=== PATIENT | male | born 1940 | race Caucasian/White ===

== ENCOUNTER → 2024-04-17 09:47 | Outpatient (REF) | payer MEDICARE, SELFPAY ==
[2024-04-17 12:31] LABS: % Basophils 0.7 % (0-2); % Eosinophils 3.2 % (0-6); % Immature Granulocytes 0.4 % (0-0.5); % Lymphocytes 23.5 % (20.5-51.1); % Monocytes 8.7 % (1.7-9.3); % Neutrophils 63.5 % (42.2-75.2); Absolute Basophils 0.1 10^3/uL (0-0.2); Absolute Eosinophils 0.2 10^3/uL (0-0.7); Absolute Lymphocytes 1.7 10^3/uL (1.2-3.4); Absolute Monocytes 0.6 10^3/uL (0.1-0.6); Absolute Neutrophils 4.6 10^3/uL (1.4-6.5); Hematocrit 40.6 % (39.0-52.0); Hemoglobin 13.2 g/dL (13.0-18.0); Mean Corp Hgb Conc. 32.5 g/dL (33.0-37.0); Mean Corpuscular Hgb 30.8 pg (27.0-31.0); Mean Corpuscular Volume 94.9 fL (80.0-94.0); Mean Platelet Volume 10.3 fL (7.4-10.4); Nucleated Red Blood Cells % 0 % (-); Platelet Count 204 10^3/uL (130-400); Red Blood Cell Count 4.28 10^6/uL (4.70-6.10); Red Cell Dist. Width 14.6 % (11.5-14.5); White Blood Cell Count 7.2 10^3/uL (4.8-10.8)
[2024-04-17 12:57] LABS: Blood Urea Nitrogen 13 mg/dl (9-20); Calcium 9.2 mg/dl (8.4-10.2); Carbon Dioxide 29 mmol/L (22-30); Chloride 98 mmol/L (98-107); Glucose 93 mg/dl (70-99); Potassium 4.8 mmol/L (3.5-5.1); Sodium 136 mmol/L (135-145); eGFR > 60.00
[2024-04-17 13:26] LABS: TSH 3.69 uIU/ml (0.47-4.68)
== END ==
LOC: REG 09:47
PROVIDERS: ATTENDING PHYSICIAN Nurse Practitioner; FAMILY PHYSICIAN Family Medicine
DX: I10 Essential (primary) hypertension (principal); I35.1 Nonrheumatic aortic (valve) insufficiency; E78.5 Hyperlipidemia, unspecified; R60.0 Localized edema; I25.10 Atherosclerotic heart disease of native coronary artery without angina pectoris
CPT/HCPCS: 36415; 80048; 84443; 85025

== ENCOUNTER → 2024-04-18 06:17 | Outpatient (REF) | payer MEDICARE, SELFPAY ==
[2024-04-18 07:25] LABS: % Basophils 0.6 % (0-2); % Eosinophils 5.2 % (0-6); % Immature Granulocytes 0.3 % (0-0.5); % Lymphocytes 22.9 % (20.5-51.1); % Monocytes 9.8 % (1.7-9.3); % Neutrophils 61.2 % (42.2-75.2); Absolute Basophils 0.1 10^3/uL (0-0.2); Absolute Eosinophils 0.5 10^3/uL (0-0.7); Absolute Monocytes 0.9 10^3/uL (0.1-0.6); Absolute Neutrophils 5.3 10^3/uL (1.4-6.5); Hematocrit 41.1 % (39.0-52.0); Hemoglobin 13.5 g/dL (13.0-18.0); Mean Corp Hgb Conc. 32.8 g/dL (33.0-37.0); Mean Corpuscular Hgb 31.6 pg (27.0-31.0); Mean Corpuscular Volume 96.3 fL (80.0-94.0); Mean Platelet Volume 10.9 fL (7.4-10.4); Nucleated Red Blood Cells % 0 % (-); Platelet Count 146 10^3/uL (130-400); Red Blood Cell Count 4.27 10^6/uL (4.70-6.10); Red Cell Dist. Width 14.6 % (11.5-14.5); White Blood Cell Count 8.7 10^3/uL (4.8-10.8)
[2024-04-18 08:19] LABS: Blood Urea Nitrogen 13 mg/dl (9-20); Calcium 9.2 mg/dl (8.4-10.2); Carbon Dioxide 32 mmol/L (22-30); Chloride 96 mmol/L (98-107); Glucose 96 mg/dl (70-99); HDL Cholesterol 34 mg/dl; LDL Cholesterol, Calculated 31 mg/dl; Potassium 4.9 mmol/L (3.5-5.1); Sodium 136 mmol/L (135-145); Total Cholesterol 75 mg/dl (50-199); Triglyceride 54 mg/dl (10-149); Very Low Density Lipoprotein 10 mg/dl (0-30); eGFR > 60.00
[2024-04-18 08:30] LABS: TSH 4.57 uIU/ml (0.47-4.68)
== END ==
LOC: REG 06:17
PROVIDERS: ATTENDING PHYSICIAN Nurse Practitioner; FAMILY PHYSICIAN Family Medicine
DX: I10 Essential (primary) hypertension (principal); I35.1 Nonrheumatic aortic (valve) insufficiency; E78.5 Hyperlipidemia, unspecified; I25.10 Atherosclerotic heart disease of native coronary artery without angina pectoris; R60.0 Localized edema
CPT/HCPCS: 36415; 80048; 80061; 84443; 85025

== ENCOUNTER → 2024-05-07 11:00 | Outpatient (REF) | payer MEDICARE, SELFPAY | LOC: HWRCS 11:00 | PROVIDERS: ATTENDING PHYSICIAN Nurse Practitioner; FAMILY PHYSICIAN Family Medicine | DX: I35.1 Nonrheumatic aortic (valve) insufficiency (principal); R60.0 Localized edema | CPT/HCPCS: 93306 ==

== ENCOUNTER → 2024-06-07 07:07 | Outpatient (REF) | payer MEDICARE, SELFPAY ==
[2024-06-07 08:16] LABS: % Basophils 0.4 % (0-2); % Eosinophils 2.3 % (0-6); % Immature Granulocytes 0.4 % (0-0.5); % Lymphocytes 22.7 % (20.5-51.1); % Monocytes 8.3 % (1.7-9.3); % Neutrophils 65.9 % (42.2-75.2); Absolute Eosinophils 0.2 10^3/uL (0-0.7); Absolute Lymphocytes 1.9 10^3/uL (1.2-3.4); Absolute Monocytes 0.7 10^3/uL (0.1-0.6); Absolute Neutrophils 5.5 10^3/uL (1.4-6.5); Hematocrit 38.5 % (39.0-52.0); Hemoglobin 12.5 g/dL (13.0-18.0); Mean Corp Hgb Conc. 32.5 g/dL (33.0-37.0); Mean Corpuscular Hgb 31.6 pg (27.0-31.0); Mean Corpuscular Volume 97.5 fL (80.0-94.0); Mean Platelet Volume 10.3 fL (7.4-10.4); Nucleated Red Blood Cells % 0 % (-); Platelet Count 189 10^3/uL (130-400); Red Blood Cell Count 3.95 10^6/uL (4.70-6.10); Red Cell Dist. Width 15.8 % (11.5-14.5); White Blood Cell Count 8.3 10^3/uL (4.8-10.8)
[2024-06-07 08:30] LABS: Erythrocyte Sed Rate 50 mm/hour (0-20)
== END ==
LOC: REG 07:07
PROVIDERS: ATTENDING PHYSICIAN Physician Assistant Surgical; FAMILY PHYSICIAN Family Medicine
DX: Z96.652 Presence of left artificial knee joint (principal); M25.562 Pain in left knee; M25.561 Pain in right knee
CPT/HCPCS: 36415; 85025; 85652; 86140

== ENCOUNTER → 2024-06-12 07:33 | Outpatient (REF) | payer MEDICARE, SELFPAY | LOC: RAD 07:33 | PROVIDERS: ATTENDING PHYSICIAN Physician Assistant Surgical; FAMILY PHYSICIAN Family Medicine | DX: Z96.652 Presence of left artificial knee joint (principal); M25.562 Pain in left knee; M25.561 Pain in right knee | CPT/HCPCS: 78315; A9503 ==

== ENCOUNTER → 2024-06-26 07:03 | Outpatient (REF) | payer MEDICARE, SELFPAY | LOC: DHCBC/DCA 07:03 | PROVIDERS: ATTENDING PHYSICIAN Internal Medicine Cardiovascular Disease; FAMILY PHYSICIAN Family Medicine | DX: I25.10 Atherosclerotic heart disease of native coronary artery without angina pectoris (principal); R06.02 Shortness of breath | CPT/HCPCS: 78452; 93017; A9500; J2785 ==

== ENCOUNTER → 2024-06-27 07:30 | Outpatient (REF) | payer MEDICARE, SELFPAY | LOC: RAD 07:30 | PROVIDERS: ATTENDING PHYSICIAN Internal Medicine Cardiovascular Disease; FAMILY PHYSICIAN Family Medicine | DX: R60.0 Localized edema (principal) | CPT/HCPCS: 93971 ==

== ENCOUNTER → 2024-07-07 07:01 | Outpatient (REF) | payer MEDICARE, SELFPAY ==
[2024-07-07 07:51] LABS: Urine Albumin Trace (Neg - Trace); Urine Bilirubin Negative (Negative); Urine Character Clear (Clear); Urine Color Yellow; Urine Glucose Negative (Negative); Urine Ketone Negative (Negative); Urine Leukocyte Negative (Negative); Urine Nitrite Negative (Negative); Urine Occult Blood Negative (Negative); Urine Urobilinogen 1+ (Neg - 1+)
[2024-07-07 07:59] LABS: % Basophils 0.6 % (0-2); % Eosinophils 3.6 % (0-6); % Immature Granulocytes 0.5 % (0-0.5); % Lymphocytes 26.3 % (20.5-51.1); % Monocytes 11.4 % (1.7-9.3); % Neutrophils 57.6 % (42.2-75.2); Absolute Basophils 0.1 10^3/uL (0-0.2); Absolute Eosinophils 0.3 10^3/uL (0-0.7); Absolute Lymphocytes 2.1 10^3/uL (1.2-3.4); Absolute Monocytes 0.9 10^3/uL (0.1-0.6); Absolute Neutrophils 4.7 10^3/uL (1.4-6.5); Hematocrit 38.8 % (39.0-52.0); Hemoglobin 12.5 g/dL (13.0-18.0); Mean Corp Hgb Conc. 32.2 g/dL (33.0-37.0); Mean Corpuscular Hgb 32.2 pg (27.0-31.0); Mean Platelet Volume 10.2 fL (7.4-10.4); Nucleated Red Blood Cells % 0 % (-); Platelet Count 233 10^3/uL (130-400); Red Blood Cell Count 3.88 10^6/uL (4.70-6.10); Red Cell Dist. Width 16.8 % (11.5-14.5); White Blood Cell Count 8.1 10^3/uL (4.8-10.8)
[2024-07-07 08:05] LABS: Erythrocyte Sed Rate 64 mm/hour (0-20)
[2024-07-07 08:11] LABS: ALT (SGPT) 13 U/L (0-50); AST (SGOT) 23 U/L (17-59); Albumin 3.7 g/dl (3.5-5.0); Alkaline Phosphatase 101 U/L (38-126); Blood Urea Nitrogen 24 mg/dl (9-20); Calcium 9.1 mg/dl (8.4-10.2); Carbon Dioxide 33 mmol/L (22-30); Chloride 97 mmol/L (98-107); Glucose 117 mg/dl (70-99); Lipase 137 U/L (23-300); Potassium 4.9 mmol/L (3.5-5.1); Sodium 142 mmol/L (135-145); Total Bilirubin 0.6 mg/dl (0.2-1.3); Total Protein 8.4 g/dl (6.3-8.2); eGFR > 60.00
[2024-07-07 09:02] LABS: PSA, Total - Screen 0.11 ng/ml (0.0-4.0)
[2024-07-08 15:19] LABS: NT-proBNP 1300 pg/ml
== END ==
LOC: REG 07:01
PROVIDERS: ATTENDING PHYSICIAN Internal Medicine Geriatric Medicine; FAMILY PHYSICIAN Nurse Practitioner Family
DX: Z76.89 Persons encountering health services in other specified circumstances (principal); R60.0 Localized edema; R59.9 Enlarged lymph nodes, unspecified; R06.02 Shortness of breath; E78.2 Mixed hyperlipidemia; I10 Essential (primary) hypertension; E21.0 Primary hyperparathyroidism; I25.10 Atherosclerotic heart disease of native coronary artery without angina pectoris; E55.9 Vitamin D deficiency, unspecified; E05.00 Thyrotoxicosis with diffuse goiter without thyrotoxic crisis or storm; E04.1 Nontoxic single thyroid nodule; R10.33 Periumbilical pain; Z13.31 Encounter for screening for depression; Z12.5 Encounter for screening for malignant neoplasm of prostate
CPT/HCPCS: 36415; 71046; 80053; 81003; 83690; 83880; 85025; 85652; G0103

== ENCOUNTER → 2024-07-07 07:41 | Outpatient (REF) | payer MEDICARE, SELFPAY | LOC: WOUND 07:41 | PROVIDERS: ATTENDING PHYSICIAN Surgery; FAMILY PHYSICIAN Family Medicine | DX: I87.312 Chronic venous hypertension (idiopathic) with ulcer of left lower extremity (principal); L97.222 Non-pressure chronic ulcer of left calf with fat layer exposed; L97.822 Non-pressure chronic ulcer of other part of left lower leg with fat layer exposed; I87.2 Venous insufficiency (chronic) (peripheral); I73.9 Peripheral vascular disease, unspecified; I25.10 Atherosclerotic heart disease of native coronary artery without angina pectoris; E66.09 Other obesity due to excess calories; I21.19 ST elevation (STEMI) myocardial infarction involving other coronary artery of inferior wall; I10 Essential (primary) hypertension | CPT/HCPCS: 97597; 99204 ==

== ENCOUNTER → 2024-07-09 14:07 | Outpatient (REF) | payer MEDICARE, SELFPAY | LOC: HWRAD 14:07 | PROVIDERS: ATTENDING PHYSICIAN Nurse Practitioner Family | DX: J90 Pleural effusion, not elsewhere classified (principal); M79.89 Other specified soft tissue disorders; R59.9 Enlarged lymph nodes, unspecified | CPT/HCPCS: 71270; 74178; Q9967 ==

== ENCOUNTER → 2024-07-15 08:39 | Outpatient (REF) | payer MEDICARE, SELFPAY | LOC: WOUND 08:39 | PROVIDERS: ATTENDING PHYSICIAN Surgery; FAMILY PHYSICIAN Nurse Practitioner Family | DX: I87.312 Chronic venous hypertension (idiopathic) with ulcer of left lower extremity (principal); L97.222 Non-pressure chronic ulcer of left calf with fat layer exposed; L97.822 Non-pressure chronic ulcer of other part of left lower leg with fat layer exposed; I87.2 Venous insufficiency (chronic) (peripheral); I73.9 Peripheral vascular disease, unspecified; I25.10 Atherosclerotic heart disease of native coronary artery without angina pectoris; E66.09 Other obesity due to excess calories; I21.19 ST elevation (STEMI) myocardial infarction involving other coronary artery of inferior wall; I10 Essential (primary) hypertension | CPT/HCPCS: 99213 ==

== ENCOUNTER → 2024-07-22 08:41 | Outpatient (REF) | payer MEDICARE, SELFPAY | LOC: WOUND 08:41 | PROVIDERS: ATTENDING PHYSICIAN Surgery; FAMILY PHYSICIAN Nurse Practitioner Family | DX: I87.312 Chronic venous hypertension (idiopathic) with ulcer of left lower extremity (principal); L97.222 Non-pressure chronic ulcer of left calf with fat layer exposed; L97.822 Non-pressure chronic ulcer of other part of left lower leg with fat layer exposed; I87.2 Venous insufficiency (chronic) (peripheral); I73.9 Peripheral vascular disease, unspecified; I25.10 Atherosclerotic heart disease of native coronary artery without angina pectoris; I21.19 ST elevation (STEMI) myocardial infarction involving other coronary artery of inferior wall; I10 Essential (primary) hypertension | CPT/HCPCS: 29581; 99213 ==

== ENCOUNTER → 2024-07-25 09:43 | Outpatient (REF) | payer MEDICARE, SELFPAY | LOC: WOUND 09:43 | PROVIDERS: ATTENDING PHYSICIAN Surgery; FAMILY PHYSICIAN Nurse Practitioner Family | DX: I87.312 Chronic venous hypertension (idiopathic) with ulcer of left lower extremity (principal); L97.222 Non-pressure chronic ulcer of left calf with fat layer exposed; L97.822 Non-pressure chronic ulcer of other part of left lower leg with fat layer exposed; I87.2 Venous insufficiency (chronic) (peripheral); I73.9 Peripheral vascular disease, unspecified; I25.10 Atherosclerotic heart disease of native coronary artery without angina pectoris; E66.09 Other obesity due to excess calories; I21.19 ST elevation (STEMI) myocardial infarction involving other coronary artery of inferior wall; I10 Essential (primary) hypertension | CPT/HCPCS: 29580 ==

== ENCOUNTER → 2024-07-28 14:18 | Outpatient (REF) | payer MEDICARE, SELFPAY | LOC: WOUND 14:18 | PROVIDERS: ATTENDING PHYSICIAN Surgery; FAMILY PHYSICIAN Nurse Practitioner Family | DX: I87.312 Chronic venous hypertension (idiopathic) with ulcer of left lower extremity (principal); L97.222 Non-pressure chronic ulcer of left calf with fat layer exposed; L97.822 Non-pressure chronic ulcer of other part of left lower leg with fat layer exposed; I87.2 Venous insufficiency (chronic) (peripheral); I73.9 Peripheral vascular disease, unspecified; I25.10 Atherosclerotic heart disease of native coronary artery without angina pectoris; E66.09 Other obesity due to excess calories; I21.19 ST elevation (STEMI) myocardial infarction involving other coronary artery of inferior wall; I10 Essential (primary) hypertension | CPT/HCPCS: 29581; 99213 ==

== ENCOUNTER → 2024-08-01 09:31 | Outpatient (REF) | payer MEDICARE, SELFPAY | LOC: WOUND 09:31 | PROVIDERS: ATTENDING PHYSICIAN Surgery; FAMILY PHYSICIAN Nurse Practitioner Family | DX: I87.312 Chronic venous hypertension (idiopathic) with ulcer of left lower extremity (principal); L97.222 Non-pressure chronic ulcer of left calf with fat layer exposed; L97.822 Non-pressure chronic ulcer of other part of left lower leg with fat layer exposed; I87.2 Venous insufficiency (chronic) (peripheral); I73.9 Peripheral vascular disease, unspecified; I25.10 Atherosclerotic heart disease of native coronary artery without angina pectoris; E66.09 Other obesity due to excess calories; I21.19 ST elevation (STEMI) myocardial infarction involving other coronary artery of inferior wall; I10 Essential (primary) hypertension | CPT/HCPCS: 29580 ==

== ENCOUNTER → 2024-08-04 08:29 | Outpatient (REF) | payer MEDICARE, SELFPAY | LOC: WOUND 08:29 | PROVIDERS: ATTENDING PHYSICIAN Surgery; FAMILY PHYSICIAN Nurse Practitioner Family | DX: I87.312 Chronic venous hypertension (idiopathic) with ulcer of left lower extremity (principal); L97.222 Non-pressure chronic ulcer of left calf with fat layer exposed; L97.822 Non-pressure chronic ulcer of other part of left lower leg with fat layer exposed; I87.2 Venous insufficiency (chronic) (peripheral); I73.9 Peripheral vascular disease, unspecified; I25.10 Atherosclerotic heart disease of native coronary artery without angina pectoris; E66.09 Other obesity due to excess calories; I21.19 ST elevation (STEMI) myocardial infarction involving other coronary artery of inferior wall; I10 Essential (primary) hypertension | CPT/HCPCS: 11042 ==

== ENCOUNTER → 2024-08-06 06:22 | Outpatient (REF) | payer MEDICARE, SELFPAY ==
[2024-08-06 06:51] LABS: % Basophils 0.7 % (0-2); % Eosinophils 3.6 % (0-6); % Immature Granulocytes 0.8 % (0-0.5); % Lymphocytes 30.3 % (20.5-51.1); % Monocytes 10.3 % (1.7-9.3); % Neutrophils 54.3 % (42.2-75.2); Absolute Eosinophils 0.2 10^3/uL (0-0.7); Absolute Immature Granulocytes 0.1 10^3/uL (0-0.05); Absolute Lymphocytes 1.9 10^3/uL (1.2-3.4); Absolute Monocytes 0.6 10^3/uL (0.1-0.6); Absolute Neutrophils 3.3 10^3/uL (1.4-6.5); Hematocrit 34.9 % (39.0-52.0); Hemoglobin 11.4 g/dL (13.0-18.0); Mean Corp Hgb Conc. 32.7 g/dL (33.0-37.0); Mean Platelet Volume 10.7 fL (7.4-10.4); Nucleated Red Blood Cells % 0 % (-); Platelet Count 184 10^3/uL (130-400); Red Blood Cell Count 3.56 10^6/uL (4.70-6.10); Red Cell Dist. Width 15.9 % (11.5-14.5); White Blood Cell Count 6.1 10^3/uL (4.8-10.8)
[2024-08-06 07:19] LABS: ALT (SGPT) 12 U/L (0-50); AST (SGOT) 25 U/L (17-59); Albumin 3.5 g/dl (3.5-5.0); Alkaline Phosphatase 97 U/L (38-126); Blood Urea Nitrogen 29 mg/dl (9-20); Calcium 9.2 mg/dl (8.4-10.2); Carbon Dioxide 34 mmol/L (22-30); Chloride 97 mmol/L (98-107); Glucose 99 mg/dl (70-99); LDH 156 U/L (120-246); Sodium 141 mmol/L (135-145); Total Bilirubin 0.7 mg/dl (0.2-1.3); Total Protein 8.6 g/dl (6.3-8.2); Uric Acid 7.6 mg/dl (3.5-8.5); eGFR > 60.00
[2024-08-09 10:16] LABS: Albumin 2.93 g/dL (3.75-5.01); Alpha 1 Globulin 0.26 g/dL (0.19-0.46); Alpha 2 Globulin 0.49 g/dL (0.48-1.05); Free Kappa Light Chains,Quant 70.61 mg/L (3.30-19.40); Free Lambda Light Chains,Quant 12.98 mg/L (5.71-26.30); IgA 4033 mg/dL (68-408); IgG 702 mg/dL (768-1632); IgM 100 mg/dL (35-263); Immunofixation Electrophoresis IFE Done; Kappa/Lambda Fr Light Ratio 5.44 (0.26-1.65); Total Protein-Electrophoresis 8.7 g/dL (6.3-8.2)
== END ==
LOC: REG 06:22
PROVIDERS: ATTENDING PHYSICIAN Internal Medicine Hematology & Oncology; FAMILY PHYSICIAN Nurse Practitioner Family
DX: C85.90 Non-Hodgkin lymphoma, unspecified, unspecified site (principal); I10 Essential (primary) hypertension
CPT/HCPCS: 36415; 80053; 82784; 83521; 83615; 84155; 84165; 84550; 85025; 86334

== ENCOUNTER → 2024-08-08 07:55 | Outpatient (REF) | payer MEDICARE, SELFPAY ==
[2024-08-08 08:45] VITALS: BP 117/65; BP_SYST 80
[2024-08-08 09:26] VITALS: BP 114/64
== END ==
LOC: WDC 07:55
PROVIDERS: ATTENDING PHYSICIAN Surgery; FAMILY PHYSICIAN Family Medicine
DX: J90 Pleural effusion, not elsewhere classified (principal); R59.1 Generalized enlarged lymph nodes; N64.59 Other signs and symptoms in breast
CPT/HCPCS: 88305; 32555; 71045; 76642; 88112

== ENCOUNTER → 2024-08-11 14:13 | Outpatient (REF) | payer MEDICARE, SELFPAY | LOC: WOUND 14:13 | PROVIDERS: ATTENDING PHYSICIAN Surgery; FAMILY PHYSICIAN Nurse Practitioner Family | DX: I87.312 Chronic venous hypertension (idiopathic) with ulcer of left lower extremity (principal); L97.222 Non-pressure chronic ulcer of left calf with fat layer exposed; L97.822 Non-pressure chronic ulcer of other part of left lower leg with fat layer exposed; I87.2 Venous insufficiency (chronic) (peripheral); I73.9 Peripheral vascular disease, unspecified; I25.10 Atherosclerotic heart disease of native coronary artery without angina pectoris; E66.09 Other obesity due to excess calories; I21.19 ST elevation (STEMI) myocardial infarction involving other coronary artery of inferior wall; I10 Essential (primary) hypertension | CPT/HCPCS: 11042 ==

== ENCOUNTER → 2024-08-18 07:29 | Outpatient (REF) | payer MEDICARE, SELFPAY | LOC: WDC 07:29 | PROVIDERS: ATTENDING PHYSICIAN Surgery; FAMILY PHYSICIAN Family Medicine | DX: R59.1 Generalized enlarged lymph nodes (principal) | CPT/HCPCS: 19285; A4648 ==

== ENCOUNTER → 2024-08-18 14:02 | Outpatient (REF) | payer MEDICARE, SELFPAY | LOC: WOUND 14:02 | PROVIDERS: ATTENDING PHYSICIAN Surgery; FAMILY PHYSICIAN Nurse Practitioner Family | DX: I87.312 Chronic venous hypertension (idiopathic) with ulcer of left lower extremity (principal); L97.222 Non-pressure chronic ulcer of left calf with fat layer exposed; L97.822 Non-pressure chronic ulcer of other part of left lower leg with fat layer exposed; I87.2 Venous insufficiency (chronic) (peripheral); I73.9 Peripheral vascular disease, unspecified; I25.10 Atherosclerotic heart disease of native coronary artery without angina pectoris; E66.09 Other obesity due to excess calories; I21.19 ST elevation (STEMI) myocardial infarction involving other coronary artery of inferior wall; I10 Essential (primary) hypertension | CPT/HCPCS: 29581; 99213 ==

== ENCOUNTER 2024-08-19 06:25 | Day surgery (SDC) | payer MEDICARE, SELFPAY ==
[2024-08-15 11:02] VITALS: BMI 33.4
[2024-08-19 08:45] VITALS: BP 125/71
[2024-08-19 08:55] VITALS: BMI 33.4
[2024-08-19] MEDS: TYLENOL 1000 MG PO (09:13)
--- NOTE | 2024-08-19 09:52 | W.SUR.PREOP ---
Pre-Operative Surgical Note
-
I have examined this patient prior to the performance of the scheduled procedure.
The patient's condition is unchanged from the time of the current History and
Physical and the patient is able to undergo the scheduled procedure.
[2024-08-19 16:34] VITALS: BP 112/67
[2024-08-19 16:47] VITALS: BP 110/77
--- NOTE | 2024-08-19 16:49 | W.IMMPOSTOP ---
Surgical Immed Post Op Note
-
Primary Surgeon: Taz Muse MD
Assisting Surgeon: None
Pre-op Diagnosis: Lymphadenopathy
Post-op Diagnosis: Same
Procedure Performed: Open left axillary lymph node biopsy
Anesthesia Type: MAC
Specimen / Cultures: Left axillary lymph node (sent fresh, r/o lymphoma)
Estimated Blood Loss: 3 cc
Complications: None
Operative Findings: Palpable left axillary lymph node confirmed with ultrasound and Evelina dump operator probe. Lymph node taken out in its entirety without violation of the capsule. Surrounding tissue meticulously dissected and all structures emanating to
and from the lymph node were ligated with 3-0 Vicryl's followed by titanium clips. Pathology confirmed receiving specimen and that there was enough tissue for cytology and histopathologic examination.
--- NOTE | 2024-08-19 16:53 | OR.RPT ---
Addendum entered and electronically signed by Taz Muse MD 08/21/24 15:23:
Within the details of the operation:
The lymph node was under underneath the pectoralis minor and was a level 2 lymph node.
Requesting CPT code 42694
Original Note:
Operative Report
Operative Report
Patient Name: Jay Jay Lott
: 1940
Date of Operation: 08/19/2024
Preoperative Diagnosis: Lymphadenopathy
Postoperative Diagnosis: Same
Procedure(s):
Procedure Performed: Open left axillary lymph node biopsy
Surgeon(s):
Dr. Muse
Healthcare Economics Consultant(s):
None
Anesthesia Type: MAC
Specimen / Cultures: Left axillary lymph node (sent fresh, r/o lymphoma)
Estimated Blood Loss: 3 cc
Complications: None
Indication for surgery:
This is an 84-year-old male with diffuse lymphadenopathy concerning for lymphoma. General surgery was consulted to obtain lymph node for tissue confirmation. Preoperative imaging demonstrated PET avid lymph nodes in the left axilla. These were
not readily palpated on exam but readily visualized on ultrasound imaging. After discussion of risk benefits and alternatives, the patient elected and was consented for a left axillary lymph node biopsy. The patient was marked preoperatively with
a Evelina rouge sifter transmitter.
Operative Findings: Palpable left axillary lymph node confirmed with ultrasound and Evelina rouge sifter probe. Lymph node taken out in its entirety without violation of the capsule. Surrounding tissue meticulously dissected and all structures emanating to
and from the lymph node were ligated with 3-0 Vicryl's followed by titanium clips. Pathology confirmed receiving specimen and that there was enough tissue for cytology and histopathologic examination.
Details of the operation:
The patient was brought to the operating room a placed in the supine position. The initial Evelina rouge sifter device we used was nonfunctional so this was replaced with another, while we are awaiting the axilla was examined using an ultrasound device and
the lymph node was readily identified and our planned skin line was marked. After appropriate sedation by anesthesia, the area of the left axilla was prepped and draped in the usual fashion. A linear incision over natural skin line was made over
the mass and carried down through the subcutaneous tissue. At this point I could palpate the lymph node and our new Evelina rouge sifter probe was brought onto the field and confirmed positive signal. The lymph node which appeared to be a level 1 node, just
lateral to the pectoralis minor was identified and circumferentially freed from the surrounding tissue. Care was taken to ligate each individual structure emanating to and from the lymph node with 3-0 Vicryl ties followed by a small titanium clips.
The specimen was delivered and sent fresh to pathology for evaluation. The Evelina rouge sifter transmitter appeared to have pierced through the lymph node and was removed along with the specimen. Hemostasis was obtained. The axilla was then closed in
layers using 3-0 Vicryl sutures followed by a running 4-0 Monocryl. At this point pathology confirmed that the specimen had been received and that there was enough tissue for evaluation. The skin was then dressed with Dermabond concluding the
case. All counts were correct at the end of procedure. The patient was then transferred to the PACU for recovery.
I was the attending physician and performed the procedure with assistance from the DIGITAL ART DIRECTOR above. I was present for all portions of the case.
Taz Muse MD
[2024-08-19 17:00] VITALS: BP 119/68
[2024-08-19 17:15] VITALS: BP 98/69
== END 2024-08-19 17:33 | disposition home or self-care (01) ==
LOC: SDS 06:25
PROVIDERS: ATTENDING PHYSICIAN Surgery
DX: C83.04 Small cell B-cell lymphoma, lymph nodes of axilla and upper limb (principal)
CPT/HCPCS: 38500; 88305; 88184; 88185; 88333; 88341; 88342; 88365; A4648

== ENCOUNTER → 2024-08-22 09:25 | Outpatient (REF) | payer MEDICARE, SELFPAY | LOC: RAD 09:25 | PROVIDERS: ATTENDING PHYSICIAN Nurse Practitioner Family; FAMILY PHYSICIAN Family Medicine | DX: R06.02 Shortness of breath (principal); J90 Pleural effusion, not elsewhere classified | CPT/HCPCS: 71046 ==

== ENCOUNTER → 2024-08-25 13:35 | Outpatient (REF) | payer MEDICARE, SELFPAY | LOC: WOUND 13:35 | PROVIDERS: ATTENDING PHYSICIAN Surgery; FAMILY PHYSICIAN Nurse Practitioner Family | DX: I87.312 Chronic venous hypertension (idiopathic) with ulcer of left lower extremity (principal); L97.222 Non-pressure chronic ulcer of left calf with fat layer exposed; L97.822 Non-pressure chronic ulcer of other part of left lower leg with fat layer exposed; I87.2 Venous insufficiency (chronic) (peripheral); I73.9 Peripheral vascular disease, unspecified; I25.10 Atherosclerotic heart disease of native coronary artery without angina pectoris; E66.09 Other obesity due to excess calories; I21.19 ST elevation (STEMI) myocardial infarction involving other coronary artery of inferior wall; I10 Essential (primary) hypertension | CPT/HCPCS: 11042; 11045 ==

== ENCOUNTER → 2024-09-01 14:03 | Outpatient (REF) | payer MEDICARE, SELFPAY | LOC: WOUND 14:03 | PROVIDERS: ATTENDING PHYSICIAN Surgery; FAMILY PHYSICIAN Nurse Practitioner Family | DX: I87.313 Chronic venous hypertension (idiopathic) with ulcer of bilateral lower extremity (principal); L97.222 Non-pressure chronic ulcer of left calf with fat layer exposed; L97.822 Non-pressure chronic ulcer of other part of left lower leg with fat layer exposed; I87.2 Venous insufficiency (chronic) (peripheral); I89.0 Lymphedema, not elsewhere classified; I73.9 Peripheral vascular disease, unspecified; I25.10 Atherosclerotic heart disease of native coronary artery without angina pectoris; E66.09 Other obesity due to excess calories; I21.19 ST elevation (STEMI) myocardial infarction involving other coronary artery of inferior wall; I10 Essential (primary) hypertension | CPT/HCPCS: 29581; 99213 ==

== ENCOUNTER → 2024-09-04 06:23 | Outpatient (REF) | payer MEDICARE, SELFPAY ==
[2024-09-04 07:44] LABS: % Basophils 0.7 % (0-2); % Eosinophils 3.6 % (0-6); % Immature Granulocytes 0.5 % (0-0.5); % Lymphocytes 24.1 % (20.5-51.1); % Monocytes 8.7 % (1.7-9.3); % Neutrophils 62.4 % (42.2-75.2); Absolute Eosinophils 0.2 10^3/uL (0-0.7); Absolute Lymphocytes 1.5 10^3/uL (1.2-3.4); Absolute Monocytes 0.5 10^3/uL (0.1-0.6); Absolute Neutrophils 3.8 10^3/uL (1.4-6.5); Hematocrit 36.8 % (39.0-52.0); Hemoglobin 11.8 g/dL (13.0-18.0); Mean Corp Hgb Conc. 32.1 g/dL (33.0-37.0); Mean Corpuscular Hgb 33.1 pg (27.0-31.0); Mean Corpuscular Volume 103.4 fL (80.0-94.0); Mean Platelet Volume 10.4 fL (7.4-10.4); Nucleated Red Blood Cells % 0 % (-); Platelet Count 186 10^3/uL (130-400); Red Blood Cell Count 3.56 10^6/uL (4.70-6.10); Red Cell Dist. Width 14.6 % (11.5-14.5); White Blood Cell Count 6.1 10^3/uL (4.8-10.8)
[2024-09-04 08:16] LABS: ALT (SGPT) 13 U/L (0-50); AST (SGOT) 24 U/L (17-59); Albumin 3.5 g/dl (3.5-5.0); Alkaline Phosphatase 96 U/L (38-126); Blood Urea Nitrogen 32 mg/dl (9-20); Calcium 9.2 mg/dl (8.4-10.2); Carbon Dioxide 38 mmol/L (22-30); Chloride 97 mmol/L (98-107); Glucose 99 mg/dl (70-99); Potassium 4.7 mmol/L (3.5-5.1); Sodium 143 mmol/L (135-145); Total Bilirubin 0.6 mg/dl (0.2-1.3); eGFR > 60.00
[2024-09-04 19:42] LABS: Hepatitis B Surface Antigen Negative (Negative)
[2024-09-04 20:00] LABS: Hepatitis B Core Ab, Total Negative (Negative); Hepatitis B Surface Antibody Negative
[2024-09-04 20:11] LABS: Hepatitis A Antibody, Total Negative (Negative)
== END ==
LOC: REG 06:23
PROVIDERS: ATTENDING PHYSICIAN Internal Medicine Hematology & Oncology; FAMILY PHYSICIAN Family Medicine; REFERRING PHYSICIAN Nurse Practitioner Family
DX: C85.90 Non-Hodgkin lymphoma, unspecified, unspecified site (principal)
CPT/HCPCS: 36415; 80053; 84550; 85025; 86704; 86706; 86708; 87340

== ENCOUNTER → 2024-09-05 07:48 | Outpatient (REF) | payer MEDICARE, SELFPAY | LOC: WOUND 07:48 | PROVIDERS: ATTENDING PHYSICIAN Surgery; FAMILY PHYSICIAN Nurse Practitioner Family | DX: I87.313 Chronic venous hypertension (idiopathic) with ulcer of bilateral lower extremity (principal); L97.222 Non-pressure chronic ulcer of left calf with fat layer exposed; L97.822 Non-pressure chronic ulcer of other part of left lower leg with fat layer exposed; I87.2 Venous insufficiency (chronic) (peripheral); I89.0 Lymphedema, not elsewhere classified; I73.9 Peripheral vascular disease, unspecified; I25.10 Atherosclerotic heart disease of native coronary artery without angina pectoris; E66.09 Other obesity due to excess calories; I21.19 ST elevation (STEMI) myocardial infarction involving other coronary artery of inferior wall; I10 Essential (primary) hypertension | CPT/HCPCS: 29581 ==

== ENCOUNTER → 2024-09-08 14:14 | Outpatient (REF) | payer MEDICARE, SELFPAY | LOC: RAD 14:14 | PROVIDERS: ATTENDING PHYSICIAN Surgery; FAMILY PHYSICIAN Nurse Practitioner Family | DX: I87.312 Chronic venous hypertension (idiopathic) with ulcer of left lower extremity (principal); I87.2 Venous insufficiency (chronic) (peripheral) | CPT/HCPCS: 93971 ==

== ENCOUNTER → 2024-09-09 06:53 | Outpatient (REF) | payer MEDICARE, SELFPAY ==
[2024-09-09 07:54] VITALS: BP 112/54; BP_SYST 76
[2024-09-09 08:32] VITALS: BP 93/74
== END ==
LOC: RADI 06:53
PROVIDERS: ATTENDING PHYSICIAN Internal Medicine Hematology & Oncology; FAMILY PHYSICIAN Nurse Practitioner Family
DX: J90 Pleural effusion, not elsewhere classified (principal)
CPT/HCPCS: 32555; 71045

== ENCOUNTER → 2024-09-09 10:53 | Outpatient (REF) | payer MEDICARE, SELFPAY | LOC: WOUND 10:53 | PROVIDERS: ATTENDING PHYSICIAN Surgery; FAMILY PHYSICIAN Nurse Practitioner Family | DX: I87.313 Chronic venous hypertension (idiopathic) with ulcer of bilateral lower extremity (principal); L97.222 Non-pressure chronic ulcer of left calf with fat layer exposed; L97.822 Non-pressure chronic ulcer of other part of left lower leg with fat layer exposed; L97.512 Non-pressure chronic ulcer of other part of right foot with fat layer exposed; I87.2 Venous insufficiency (chronic) (peripheral); I89.0 Lymphedema, not elsewhere classified; I73.9 Peripheral vascular disease, unspecified; I25.10 Atherosclerotic heart disease of native coronary artery without angina pectoris; E66.09 Other obesity due to excess calories; I21.19 ST elevation (STEMI) myocardial infarction involving other coronary artery of inferior wall; I10 Essential (primary) hypertension | CPT/HCPCS: 29581; 99213 ==

== ENCOUNTER → 2024-09-12 08:40 | Outpatient (REF) | payer MEDICARE, SELFPAY | LOC: WOUND 08:40 | PROVIDERS: ATTENDING PHYSICIAN Surgery; FAMILY PHYSICIAN Nurse Practitioner Family | DX: I87.313 Chronic venous hypertension (idiopathic) with ulcer of bilateral lower extremity (principal); L97.222 Non-pressure chronic ulcer of left calf with fat layer exposed; L97.822 Non-pressure chronic ulcer of other part of left lower leg with fat layer exposed; L97.512 Non-pressure chronic ulcer of other part of right foot with fat layer exposed; I87.2 Venous insufficiency (chronic) (peripheral); I89.0 Lymphedema, not elsewhere classified; I73.9 Peripheral vascular disease, unspecified; I25.10 Atherosclerotic heart disease of native coronary artery without angina pectoris; E66.09 Other obesity due to excess calories; I21.19 ST elevation (STEMI) myocardial infarction involving other coronary artery of inferior wall; I10 Essential (primary) hypertension | CPT/HCPCS: 29581 ==

== ENCOUNTER → 2024-09-15 08:23 | Outpatient (REF) | payer MEDICARE, SELFPAY | LOC: WOUND 08:23 | PROVIDERS: ATTENDING PHYSICIAN Surgery; FAMILY PHYSICIAN Nurse Practitioner Family | DX: I87.313 Chronic venous hypertension (idiopathic) with ulcer of bilateral lower extremity (principal); L97.222 Non-pressure chronic ulcer of left calf with fat layer exposed; L97.822 Non-pressure chronic ulcer of other part of left lower leg with fat layer exposed; L97.512 Non-pressure chronic ulcer of other part of right foot with fat layer exposed; I87.2 Venous insufficiency (chronic) (peripheral); I89.0 Lymphedema, not elsewhere classified; I73.9 Peripheral vascular disease, unspecified; I25.10 Atherosclerotic heart disease of native coronary artery without angina pectoris; E66.09 Other obesity due to excess calories; I21.19 ST elevation (STEMI) myocardial infarction involving other coronary artery of inferior wall; I10 Essential (primary) hypertension | CPT/HCPCS: 29581; 99213 ==

== ENCOUNTER → 2024-09-22 09:43 | Outpatient (REF) | payer MEDICARE, SELFPAY ==
[2024-09-22 10:06] VITALS: BP 116/69; BP_SYST 86
[2024-09-22 10:38] VITALS: BP 95/55; BP_SYST 88
[2024-09-22 10:52] VITALS: BP 95/55
== END ==
LOC: RADI 09:43
PROVIDERS: ATTENDING PHYSICIAN Internal Medicine Hematology & Oncology
DX: J90 Pleural effusion, not elsewhere classified (principal)
CPT/HCPCS: 32555; 71045

== ENCOUNTER → 2024-09-22 12:01 | Outpatient (REF) | payer MEDICARE, SELFPAY | LOC: WOUND 12:01 | PROVIDERS: ATTENDING PHYSICIAN Surgery; FAMILY PHYSICIAN Nurse Practitioner Family | DX: I87.313 Chronic venous hypertension (idiopathic) with ulcer of bilateral lower extremity (principal); L97.222 Non-pressure chronic ulcer of left calf with fat layer exposed; L97.822 Non-pressure chronic ulcer of other part of left lower leg with fat layer exposed; L97.512 Non-pressure chronic ulcer of other part of right foot with fat layer exposed; I87.2 Venous insufficiency (chronic) (peripheral); I89.0 Lymphedema, not elsewhere classified; I73.9 Peripheral vascular disease, unspecified; I25.10 Atherosclerotic heart disease of native coronary artery without angina pectoris; E66.09 Other obesity due to excess calories; I21.19 ST elevation (STEMI) myocardial infarction involving other coronary artery of inferior wall; I10 Essential (primary) hypertension | CPT/HCPCS: 11042 ==

== ENCOUNTER → 2024-09-29 07:35 | Outpatient (REF) | payer MEDICARE, SELFPAY | LOC: WOUND 07:35 | PROVIDERS: ATTENDING PHYSICIAN Surgery; FAMILY PHYSICIAN Internal Medicine Geriatric Medicine | DX: I87.313 Chronic venous hypertension (idiopathic) with ulcer of bilateral lower extremity (principal); L97.822 Non-pressure chronic ulcer of other part of left lower leg with fat layer exposed; L97.512 Non-pressure chronic ulcer of other part of right foot with fat layer exposed; I87.2 Venous insufficiency (chronic) (peripheral); I89.0 Lymphedema, not elsewhere classified; I73.9 Peripheral vascular disease, unspecified; I25.10 Atherosclerotic heart disease of native coronary artery without angina pectoris; E66.09 Other obesity due to excess calories; I21.19 ST elevation (STEMI) myocardial infarction involving other coronary artery of inferior wall; I10 Essential (primary) hypertension | CPT/HCPCS: 11042 ==

== ENCOUNTER → 2024-10-06 12:52 | Outpatient (REF) | payer MEDICARE, SELFPAY | LOC: WOUND 12:52 | PROVIDERS: ATTENDING PHYSICIAN Surgery; FAMILY PHYSICIAN Nurse Practitioner Family | DX: I87.313 Chronic venous hypertension (idiopathic) with ulcer of bilateral lower extremity (principal); L97.222 Non-pressure chronic ulcer of left calf with fat layer exposed; L97.822 Non-pressure chronic ulcer of other part of left lower leg with fat layer exposed; L97.512 Non-pressure chronic ulcer of other part of right foot with fat layer exposed; I87.2 Venous insufficiency (chronic) (peripheral); I89.0 Lymphedema, not elsewhere classified; I73.9 Peripheral vascular disease, unspecified; I25.10 Atherosclerotic heart disease of native coronary artery without angina pectoris; E66.09 Other obesity due to excess calories; I21.19 ST elevation (STEMI) myocardial infarction involving other coronary artery of inferior wall; I10 Essential (primary) hypertension | CPT/HCPCS: 11042; 97597 ==

== ENCOUNTER → 2024-10-10 06:34 | Outpatient (REF) | payer MEDICARE, SELFPAY ==
[2024-10-10 07:29] VITALS: BP 114/65; BP_SYST 79
[2024-10-10 08:02] VITALS: BP 104/65
== END ==
LOC: RADI 06:34
PROVIDERS: ATTENDING PHYSICIAN Internal Medicine Hematology & Oncology; FAMILY PHYSICIAN Nurse Practitioner Family
DX: J90 Pleural effusion, not elsewhere classified (principal)
CPT/HCPCS: 32555; 71045

== ENCOUNTER → 2024-10-13 06:46 | Outpatient (REF) | payer MEDICARE, SELFPAY ==
[2024-10-15 14:46] LABS: Albumin 2.46 g/dL (3.75-5.01); Alpha 1 Globulin 0.31 g/dL (0.19-0.46); Alpha 2 Globulin 0.53 g/dL (0.48-1.05); Free Lambda Light Chains,Quant 14.12 mg/L (5.71-26.30); IgA 2604 mg/dL (68-408); IgG 596 mg/dL (768-1632); IgM 95 mg/dL (35-263); Immunofixation Electrophoresis IFE Done; Kappa/Lambda Fr Light Ratio 2.29 (0.26-1.65); Monoclonal Protein 2.28 g/dL (<=0.00); Total Protein-Electrophoresis 6.6 g/dL (6.3-8.2)
== END ==
LOC: REG 06:46
PROVIDERS: ATTENDING PHYSICIAN Internal Medicine Hematology & Oncology; FAMILY PHYSICIAN Nurse Practitioner Family
DX: C85.90 Non-Hodgkin lymphoma, unspecified, unspecified site (principal)
CPT/HCPCS: 36415; 82784; 83521; 84155; 84165; 86334

== ENCOUNTER → 2024-10-13 13:35 | Outpatient (REF) | payer MEDICARE, SELFPAY | LOC: WOUND 13:35 | PROVIDERS: ATTENDING PHYSICIAN Surgery; FAMILY PHYSICIAN Nurse Practitioner Family | DX: I87.313 Chronic venous hypertension (idiopathic) with ulcer of bilateral lower extremity (principal); L97.222 Non-pressure chronic ulcer of left calf with fat layer exposed; L97.822 Non-pressure chronic ulcer of other part of left lower leg with fat layer exposed; L97.512 Non-pressure chronic ulcer of other part of right foot with fat layer exposed; I87.2 Venous insufficiency (chronic) (peripheral); I89.0 Lymphedema, not elsewhere classified; I73.9 Peripheral vascular disease, unspecified; I25.10 Atherosclerotic heart disease of native coronary artery without angina pectoris; E66.09 Other obesity due to excess calories; I21.19 ST elevation (STEMI) myocardial infarction involving other coronary artery of inferior wall; I10 Essential (primary) hypertension | CPT/HCPCS: 99213 ==

== ENCOUNTER → 2024-10-17 07:23 | Outpatient (REF) | payer MEDICARE, SELFPAY ==
[2024-10-17 08:45] VITALS: BP 99/59; BP_SYST 79
== END ==
LOC: RADI 07:23
PROVIDERS: ATTENDING PHYSICIAN Internal Medicine Hematology & Oncology; FAMILY PHYSICIAN Nurse Practitioner Family; REFERRING PHYSICIAN Surgery
DX: J90 Pleural effusion, not elsewhere classified (principal); I73.9 Peripheral vascular disease, unspecified
CPT/HCPCS: 32555; 71045; 93922; 93925

== ENCOUNTER → 2024-10-21 10:58 | Outpatient (REF) | payer MEDICARE, SELFPAY ==
[2024-10-21 12:16] LABS: % Basophils 0.5 % (0-2); % Immature Granulocytes 0.2 % (0-0.5); % Lymphocytes 16.8 % (20.5-51.1); % Monocytes 8.5 % (1.7-9.3); Absolute Eosinophils 0.1 10^3/uL (0-0.7); Absolute Monocytes 0.5 10^3/uL (0.1-0.6); Absolute Neutrophils 4.4 10^3/uL (1.4-6.5); Hematocrit 32.1 % (39.0-52.0); Hemoglobin 10.4 g/dL (13.0-18.0); Mean Corp Hgb Conc. 32.4 g/dL (33.0-37.0); Mean Corpuscular Hgb 32.6 pg (27.0-31.0); Mean Corpuscular Volume 100.6 fL (80.0-94.0); Mean Platelet Volume 9.2 fL (7.4-10.4); Nucleated Red Blood Cells % 0 % (-); Platelet Count 387 10^3/uL (130-400); Red Blood Cell Count 3.19 10^6/uL (4.70-6.10); Red Cell Dist. Width 14.8 % (11.5-14.5); White Blood Cell Count 6.1 10^3/uL (4.8-10.8)
[2024-10-21 12:30] VITALS: BP 118/69; BP_SYST 84
[2024-10-21 12:59] LABS: ALT (SGPT) 25 U/L (0-50); AST (SGOT) 32 U/L (17-59); Alkaline Phosphatase 109 U/L (38-126); Blood Urea Nitrogen 18 mg/dl (9-20); Calcium 8.5 mg/dl (8.4-10.2); Carbon Dioxide 32 mmol/L (22-30); Chloride 100 mmol/L (98-107); Glucose 95 mg/dl (70-99); Potassium 4.4 mmol/L (3.5-5.1); Sodium 139 mmol/L (135-145); Total Bilirubin 0.5 mg/dl (0.2-1.3); Uric Acid 3.7 mg/dl (3.5-8.5); eGFR > 60.00
[2024-10-21] MEDS: ANCEF 10 IV (12:59)
[2024-10-21 14:10] VITALS: BP 122/79; BP_SYST 84
== END ==
LOC: RADI 10:58
PROVIDERS: ATTENDING PHYSICIAN Internal Medicine Hematology & Oncology; FAMILY PHYSICIAN Nurse Practitioner Family
DX: C85.90 Non-Hodgkin lymphoma, unspecified, unspecified site (principal)
CPT/HCPCS: 36415; 36561; 76937; 77001; 80053; 84550; 85025; 99152; 99153; C1788

== ENCOUNTER → 2024-10-24 08:17 | Outpatient (REF) | payer MEDICARE, SELFPAY ==
[2024-10-24 08:45] VITALS: BP 95/53; BP_SYST 77
[2024-10-24 09:15] VITALS: BP 84/51; BP_SYST 75
== END ==
LOC: RADI 08:17
PROVIDERS: ATTENDING PHYSICIAN Internal Medicine Hematology & Oncology; FAMILY PHYSICIAN Nurse Practitioner Family
DX: J90 Pleural effusion, not elsewhere classified (principal)
CPT/HCPCS: 32555; 71045

== ENCOUNTER → 2024-10-27 08:20 | Outpatient (REF) | payer MEDICARE, SELFPAY | LOC: WOUND 08:20 | PROVIDERS: ATTENDING PHYSICIAN Surgery; FAMILY PHYSICIAN Nurse Practitioner Family | DX: I87.313 Chronic venous hypertension (idiopathic) with ulcer of bilateral lower extremity (principal); L97.222 Non-pressure chronic ulcer of left calf with fat layer exposed; L97.822 Non-pressure chronic ulcer of other part of left lower leg with fat layer exposed; L97.512 Non-pressure chronic ulcer of other part of right foot with fat layer exposed; I87.2 Venous insufficiency (chronic) (peripheral); I89.0 Lymphedema, not elsewhere classified; I73.9 Peripheral vascular disease, unspecified; I25.10 Atherosclerotic heart disease of native coronary artery without angina pectoris; E66.09 Other obesity due to excess calories; I21.19 ST elevation (STEMI) myocardial infarction involving other coronary artery of inferior wall; I10 Essential (primary) hypertension | CPT/HCPCS: 99213 ==

== ENCOUNTER 2024-10-30 01:49 | Inpatient (IN) | payer MEDICARE, SELFPAY ==
[2024-10-29 18:06] VITALS: BP 109/61
--- NOTE | 2024-10-29 18:12 | ED.GENMED ---
ED Provider Triage
<Freddy Norton PA-C - Last Filed: 10/29/24 18:14>
-
Patient seen by provider in Triage?: Seen in Triage
Attestation: A medical screening examination has been initiated by a qualified medical provider. Based on the assessment performed at this time, it has been determined that an emergent medical condition may exist and the patient has been informed
that further medical evaluation and possible additional diagnostic testing may be needed.
HPI: Multiple concerns. Bilateral lower extremity swelling, numbness to the right lower extremity from the knee to the ankle, numbness to the left foot. Mild shortness of breath, feels as if he may be getting cold-like symptoms. Cancer history,
gets once weekly thoracentesis, last had 1.7 L removed last week. Labs and ultrasound imaging ordered.
GENERAL: Alert , in no apparent distress
EYE: No visual abnormalities.
NECK: Trachea midline
ENT: No visible abnormalities.
LUNGS: No acute respiratory distress
NEUROLOGICAL: Alert and oriented
SKIN: Skin intact. No visible changes.
MUSCULOSKELETAL: Moving extremities normally
PSYCH: Normal and appropriate interaction.
This is a medical evaluation conducted in person to initiate diagnostic evaluation and provide initial therapeutics. Please see further documentation by the treating clinician.
History of Present Illness
<Freddy Norton PA-C - Last Filed: 10/29/24 18:14>
General
Chief Complaint: Numbness
Time Seen by Provider: 10/29/24 22:02
<Jeannie Pina DO - Last Filed: 10/30/24 06:35>
General
Source: patient, family (Daughter and son at bedside) and previous hospital records
Exam Limitations: none
Nursing documentation reviewed up to this point in time: agreed with
History of Present Illness
History of Present Illness:
This is an 84-year-old gentleman who resides at home. He has complex past medical history including CAD, previous history of PTCA, hypertension, hyperlipidemia. More recently was diagnosed with non-Hodgkin's lymphoma August of this year with
reported extensive retroperitoneal as well as omental adenopathy as well as recurrent malignant pleural effusions requiring weekly right-sided thoracentesis last performed Sunday, 5 days ago.
He follows with [facility] and began combination chemo and immunotherapy 1 month ago, every 28 days with second round of treatment 6 days ago. He did receive a dose of Neupogen on Sunday, 2 days ago.
Approximately 2 to 3 weeks ago he suffered a fall at home and due to chronic anticoagulants was taken to [facility] where he underwent reported unremarkable imaging but was admitted for 4 days due to significant deconditioning as well as
found to have acute shingles with superficial ulcerated lesions right buttock extending to right posterior thigh. He was treated with a 1 week course of Valtrex. Despite Valtrex he continues with significant pain and persistent, worsening
ulcerated lesions right posterior buttocks, right posterior thigh. Evaluated by his PCP 1 week ago and started on gabapentin 100 mg 3 times daily. Thus far this has not been effective for pain. He notes ongoing moderate numbness right lower leg
is also mildly to the left foot but no associated weakness, no recurrent falls.
He does note intermittent cough that began perhaps last night, today with feeling that he is 'getting a cold' He has not had a fever but is noted to have low-grade fever here 99.9 �F.
Mild shortness of breath/dyspnea on exertion which is overall improved with weekly thoracentesis.
Bilateral lower extremity edema has been chronic.
Right posterior buttock, right posterior thigh wound and pain have been getting progressively worse, near debilitating.
Past History
<Freddy Norton PA-C - Last Filed: 10/29/24 18:14>
Past History
ED Past Medical History: CAD
ED Past Surgical History: Other (Bilateral cataract surgery)
Social History
Tobacco: Non-smoker
Alcohol: Occasional
Drug: None
Personal:
Living: with family
Employment: Not employed
Family History
Family History: Other (non contributory)
Phy Exam
<Jeannie Pina DO - Last Filed: 10/30/24 06:35>
Physical Exam
Physical Exam:
GENERAL: 84-year-old gentleman appears his stated age, awake and alert, mildly ill in appearance. Oriented x 3. Cooperative. Low-grade fever noted. Rare brief nonproductive cough is noted.
EYE: pupils equal and reactive. anicteric
NECK: Supple, nontender, no meningismus, no significant adenopathy.
ENT: posterior pharynx is clear, oral mucosa is moist. TM clear b/l, nares patent.
CARDIAC: Regular rate and rhythm. no murmur.
LUNGS: no acute respiratory distress, mildly decreased breath sounds at bases otherwise clear to auscultation.
ABDOMEN: Soft, nondistended, without focal tenderness, no r/g, no cvat. normoactive BS.
NEUROLOGICAL: Alert and oriented x3, no focal neuro deficits. Motor strength is 5/5 bilaterally. Gross sensation intact.
SKIN: Warm and dry, mildly pale and color. There is an extensive, coalescent ulcerated lesion that extends from right buttock down the posterior right thigh and ends at the posterior right knee with moist base, mild peripheral erythema and
exquisitely tender to touch.
MUSCULOSKELETAL: Moderate bilateral lower extremity edema. Peripheral pulses are full and equal b/l.
PSYCH: Normal and appropriate interaction.
Sepsis
<Jeannie Pina DO - Last Filed: 10/30/24 06:35>
Sepsis Screening
Sepsis Assessment: Sepsis
Sepsis Screening: Lactate >2mmol/L
Sepsis Screen
Sepsis Screen: Sepsis
Date: 10/30/24
Time: 06:34
Course
<Freddy Norton PA-C - Last Filed: 10/29/24 18:14>
Orders/Labs/Results
Orders:
Orders
10/29/24 18:11
US Periph Venous LOWER Ext [place] Urgent
Comment:
Reason For Exam: numbness, edema
10/29/24 18:38
Complete Blood Count/With Diff Urgent
Comprehensive Metabolic Panel Urgent
NT-proBNP Urgent
10/29/24 20:45
COVID-19 Antigen Urgent
Source: Nasal Swab
Influenza A+B Rapid Molecular Urgent
LEDY Source: Nasal Swab
Specimen Description:
10/29/24 22:37
Acetaminophen [Tylenol] 1,000 mg PO NOW STA
Gabapentin [Neurontin] 300 mg PO NOW STA
Oseltamivir Phosphate [Tamiflu] 75 mg PO NOW STA
10/29/24 22:38
CR Chest - 2 Views Urgent
Comment:
Reason For Exam: cough x 1 day, hx lymphoma-recurrent effusions+flu
10/29/24 22:49
Lactic Acid Urgent
Blood Culture Q30M
LEDY Source: Blood/Venous
Specimen Description:
Wound Culture [Wound/Abscess/Other Culture] Urgent
LEDY Source: Leg
Specimen Description: Right
Date Specimen was Collected: 10/29/24
Time Specimen was Collected: 22:40
Comment: right posterior leg ulcerated wound
10/29/24 23:15
Blood Culture Q30M
LEDY Source: Blood/Venous
Specimen Description:
10/29/24 23:38
0.9% Sodium Chloride 1000 ml [Nss] 1,000 ml IV BOLUS
Piperacillin/Tazo 4.5 Gram [Zosyn] 4.5 gram in 100 ml IV NOW
10/30/24 01:25
Admit/Transfer Patient As Directed
Co-Sign Provider:
Level of Care: Inpatient admission
Assign to:: IMU- Intermediate Care
Physician / Group: [facility]
Diagnosis: Sepsis, RLE Cellulitis / Wounds
Reason for Hospitalization: Sepsis, RLE Cellulitis / Wounds
Expected length of stay greater than two midnights?: Yes
ELOS- Estimated Length of Stay in days: 5
I certify the patient meets the requirements for IP care: Yes
PRN Pain Medication Management As Directed
May give lesser potent ordered pain med per pt: Yes
preference::
Protocol:: Medication orders for pain may be administered in a
manner that supports deferring to patient preference
when the pt is:
- Requesting an ordered lesser potent pain medication.
Least to most potent pain medications are defined
as: acetaminophen < NSAID < tramadol < opioids
(morphine, oxycodone, hydromorphone).
- Requesting a lesser dose of the same medication IF
ORDERED.
- Requesting a less intrusive route of administration
if both routes are prescribed by the provider (PO <
IV).
10/30/24 01:27
Code Status As Directed
Resuscitation Status: Full Code
10/30/24 01:39
NORepinephrine 4 MG/250 ML [Levophed] 4 mg in 250 ml IV NOW
Initial dose in mcg/min, then titrate:: 2
Titrate to keep:: MAP > 65 mmHg
Titrate by mcg/min:: 1-2 mcg/min
Frequency of titrations (minutes):: 5
Maximum dose in ICU in mcg/min:: 30
Maximum dose in IMU in mcg/min:: 8
Maximum dose in IVU in mcg/min:: 4
Begin to taper infusion when:: Remained at goal for 4hrs
Taper by mcg/min:: 1-2 mcg/min
Frequency of taper (minutes) if patient maintains goal:: 30
Taper to off?: Yes
If infusion off & no longer maintaining goal:: Contact Provider
10/30/24 01:45
0.9% Sodium Chloride 1000 ml [Nss] 1,000 ml IV BOLUS
10/30/24 02:03
0.9% Sodium Chloride 1000 ml [Nss] 1,000 ml IV 125 mls/hr
Acetaminophen [Tylenol] 650 mg PO Q4HPRN PRN
HYDROmorphone [Dilaudid] 0.5 mg IV Q4HPRN PRN
Ondansetron Injectable [Zofran] 4 mg IV Q6HPRN PRN
10/30/24 02:03
Consult Notification Routine
Specialty to Notify: Infectious Disease
Consult Notification Routine
Specialty to Notify: Surgical
INFECTIOUS DISEASE CONSULT Routine
Consulting Provider: Satnam Mckenzie
Was physician already notified: No
Reason for consult: Sepsis, RLE Cellulitis / Wounds, Flu A
SURGICAL CONSULT Routine
Consulting Provider: Andrés Shrestha
Was physician already notified: No
Reason for consult: RLE Ulceration / Wounds following Zoster infection
WOUND/OSTOMY CONSULT Routine
Reason for Consult: R buttocks / LE ulcerations
Activity As Directed
Activity Level: Ambulate
With Assistance
Bladder Scan As Directed
Follow Bladder Retention/Intermittent Cath Algorithm?: Yes
PRN if no void in __ hours: 6
Frequency: Per Retention Algorithm
If Bladder Scan Result >: 400
then:: Straight cath
EKG with chest pain [ECG as needed] As Directed
ECG as needed for:: Chest Pain
I/O [Intake/ Output] As Directed
Frequency: Per unit guidelines
Precautions As Directed
Type of Precautions: Contact
Droplet
Records Request [Obtain Records] As Directed
Dates of Information to be Released: Most Recent
Type of Information Requested: Entire Record
Obtain Records from: [facility]
Straight Cath As Directed
Frequency: Per Retention Algorithm
Additional Instructions: straight cath as needed per acute urinary retention algorithm for 24 hrs
Additional Instructions: for bladder scan greater than 400 mL
Vital Signs As Directed
Frequency: Per unit guidelines
Oxygen Therapy [O2 Therapy] [RESP] Routine
Titrate/Wean O2 to maintain O2 sat greater than (%): 94
Ot Eval And Treat Routine
PT Consult [Pt Eval And Treat] Routine
Activity Level: Ambulate
With Assistance
DX Deep Vein Thrombosis Video Routine
10/30/24 02:52
Lactate Level [Lactic Acid] Q6H
10/30/24 04:25
Complete Blood Count/No Diff IN AM
10/30/24 Breakfast
Regular
At Your Request: Full Participation
Piperacillin/Tazo 3.375 Gram [Zosyn] 3.375 gram in 50 ml IV Q6H
10/30/24 08:00
Aspirin Chewable [Low Strength Aspirin] 81 mg PO DAILY
Gabapentin [Neurontin] 300 mg PO TID
Heparin 5,000 units SC Q8
Oseltamivir Phosphate [Tamiflu] 75 mg PO BID
10/30/24 08:03
Lactate Level [Lactic Acid] Q6H
10/30/24 14:03
Lactate Level [Lactic Acid] Q6H
10/30/24 18:00
Atorvastatin [Lipitor] 80 mg PO QPM
Abnormal Lab Results
10/29/24 10/29/24
18:38 22:49
WBC 33.3 H 10^3/uL
(4.8-10.8)
RBC 3.03 L 10^6/uL
(4.70-6.10)
Hgb 9.9 L g/dL
(13.0-18.0)
Hct 29.4 L %
(39.0-52.0)
MCV 97.0 H fL
(80.0-94.0)
MCH 32.7 H pg
(27.0-31.0)
RDW 15.4 H %
(11.5-14.5)
Abs Immat Gran (auto) 0.2 H 10^3/uL
(0-0.05)
Absolute Neuts (auto) 31.1 H 10^3/uL
(1.4-6.5)
Absolute Lymphs (auto) 0.9 L 10^3/uL
(1.2-3.4)
Absolute Monos (auto) 1.0 H 10^3/uL
(0.1-0.6)
Immature Gran % 0.6 H %
(0-0.5)
Neutrophils % 93.3 H %
(42.2-75.2)
Lymphocytes % 2.6 L %
(20.5-51.1)
Sodium 133 L mmol/L
(135-145)
Creatinine 0.6 L mg/dL
(0.7-1.3)
Lactic Acid 2.8 H mmol/L
(0.7-2.0)
Calcium 7.9 L mg/dl
(8.4-10.2)
Alkaline Phosphatase 158 H U/L
(38-126)
Total Protein 5.7 L g/dl
(6.3-8.2)
Albumin 2.4 L g/dl
(3.5-5.0)
10/29/24 18:38
10/29/24 18:38
Vital Signs
Initial and Last Documented VS:
Initial Vital Signs
Temp Pulse Resp BP Pulse Ox
98.4 F 104 23 109/61 95
10/29/24 18:06 10/29/24 18:06 10/29/24 18:06 10/29/24 18:06 10/29/24 18:06
Last Documented Vital Signs
Temp Pulse Resp BP Pulse Ox
98.0 F 74 22 95/54 96
10/30/24 05:22 10/30/24 06:00 10/30/24 06:00 10/30/24 06:00 10/30/24 06:00
<Jeannie Pina, DO - Last Filed: 10/30/24 06:35>
Orders/Labs/Results
Orders:
Orders
10/29/24 18:11
US Periph Venous LOWER Ext [place] Urgent
Comment:
Reason For Exam: numbness, edema
10/29/24 18:38
Complete Blood Count/With Diff Urgent
Comprehensive Metabolic Panel Urgent
NT-proBNP Urgent
10/29/24 20:45
COVID-19 Antigen Urgent
Source: Nasal Swab
Influenza A+B Rapid Molecular Urgent
LEDY Source: Nasal Swab
Specimen Description:
10/29/24 22:37
Acetaminophen [Tylenol] 1,000 mg PO NOW STA
Gabapentin [Neurontin] 300 mg PO NOW STA
Oseltamivir Phosphate [Tamiflu] 75 mg PO NOW STA
10/29/24 22:38
CR Chest - 2 Views Urgent
Comment:
Reason For Exam: cough x 1 day, hx lymphoma-recurrent effusions+flu
10/29/24 22:49
Lactic Acid Urgent
Blood Culture Q30M
LEDY Source: Blood/Venous
Specimen Description:
Wound Culture [Wound/Abscess/Other Culture] Urgent
LEDY Source: Leg
Specimen Description: Right
Date Specimen was Collected: 10/29/24
Time Specimen was Collected: 22:40
Comment: right posterior leg ulcerated wound
10/29/24 23:15
Blood Culture Q30M
LEDY Source: Blood/Venous
Specimen Description:
10/29/24 23:38
0.9% Sodium Chloride 1000 ml [Nss] 1,000 ml IV BOLUS
Piperacillin/Tazo 4.5 Gram [Zosyn] 4.5 gram in 100 ml IV NOW
10/30/24 01:25
Admit/Transfer Patient As Directed
Co-Sign Provider:
Level of Care: Inpatient admission
Assign to:: IMU- Intermediate Care
Physician / Group: [facility]
Diagnosis: Sepsis, RLE Cellulitis / Wounds
Reason for Hospitalization: Sepsis, RLE Cellulitis / Wounds
Expected length of stay greater than two midnights?: Yes
ELOS- Estimated Length of Stay in days: 5
I certify the patient meets the requirements for IP care: Yes
PRN Pain Medication Management As Directed
May give lesser potent ordered pain med per pt: Yes
preference::
Protocol:: Medication orders for pain may be administered in a
manner that supports deferring to patient preference
when the pt is:
- Requesting an ordered lesser potent pain medication.
Least to most potent pain medications are defined
as: acetaminophen < NSAID < tramadol < opioids
(morphine, oxycodone, hydromorphone).
- Requesting a lesser dose of the same medication IF
ORDERED.
- Requesting a less intrusive route of administration
if both routes are prescribed by the provider (PO <
IV).
10/30/24 01:27
Code Status As Directed
Resuscitation Status: Full Code
10/30/24 01:39
NORepinephrine 4 MG/250 ML [Levophed] 4 mg in 250 ml IV NOW
Initial dose in mcg/min, then titrate:: 2
Titrate to keep:: MAP > 65 mmHg
Titrate by mcg/min:: 1-2 mcg/min
Frequency of titrations (minutes):: 5
Maximum dose in ICU in mcg/min:: 30
Maximum dose in IMU in mcg/min:: 8
Maximum dose in IVU in mcg/min:: 4
Begin to taper infusion when:: Remained at goal for 4hrs
Taper by mcg/min:: 1-2 mcg/min
Frequency of taper (minutes) if patient maintains goal:: 30
Taper to off?: Yes
If infusion off & no longer maintaining goal:: Contact Provider
10/30/24 01:45
0.9% Sodium Chloride 1000 ml [Nss] 1,000 ml IV BOLUS
10/30/24 02:03
0.9% Sodium Chloride 1000 ml [Nss] 1,000 ml IV 125 mls/hr
Acetaminophen [Tylenol] 650 mg PO Q4HPRN PRN
HYDROmorphone [Dilaudid] 0.5 mg IV Q4HPRN PRN
Ondansetron Injectable [Zofran] 4 mg IV Q6HPRN PRN
10/30/24 02:03
Consult Notification Routine
Specialty to Notify: Infectious Disease
Consult Notification Routine
Specialty to Notify: Surgical
INFECTIOUS DISEASE CONSULT Routine
Consulting Provider: Satnam Mckenzie
Was physician already notified: No
Reason for consult: Sepsis, RLE Cellulitis / Wounds, Flu A
SURGICAL CONSULT Routine
Consulting Provider: Andrés Shrestha
Was physician already notified: No
Reason for consult: RLE Ulceration / Wounds following Zoster infection
WOUND/OSTOMY CONSULT Routine
Reason for Consult: R buttocks / LE ulcerations
Activity As Directed
Activity Level: Ambulate
With Assistance
Bladder Scan As Directed
Follow Bladder Retention/Intermittent Cath Algorithm?: Yes
PRN if no void in __ hours: 6
Frequency: Per Retention Algorithm
If Bladder Scan Result >: 400
then:: Straight cath
EKG with chest pain [ECG as needed] As Directed
ECG as needed for:: Chest Pain
I/O [Intake/ Output] As Directed
Frequency: Per unit guidelines
Precautions As Directed
Type of Precautions: Contact
Droplet
Records Request [Obtain Records] As Directed
Dates of Information to be Released: Most Recent
Type of Information Requested: Entire Record
Obtain Records from: [facility]
Straight Cath As Directed
Frequency: Per Retention Algorithm
Additional Instructions: straight cath as needed per acute urinary retention algorithm for 24 hrs
Additional Instructions: for bladder scan greater than 400 mL
Vital Signs As Directed
Frequency: Per unit guidelines
Oxygen Therapy [O2 Therapy] [RESP] Routine
Titrate/Wean O2 to maintain O2 sat greater than (%): 94
Ot Eval And Treat Routine
PT Consult [Pt Eval And Treat] Routine
Activity Level: Ambulate
With Assistance
DX Deep Vein Thrombosis Video Routine
10/30/24 02:52
Lactate Level [Lactic Acid] Q6H
10/30/24 04:25
Complete Blood Count/No Diff IN AM
10/30/24 Breakfast
Regular
At Your Request: Full Participation
Piperacillin/Tazo 3.375 Gram [Zosyn] 3.375 gram in 50 ml IV Q6H
10/30/24 08:00
Aspirin Chewable [Low Strength Aspirin] 81 mg PO DAILY
Gabapentin [Neurontin] 300 mg PO TID
Heparin 5,000 units SC Q8
Oseltamivir Phosphate [Tamiflu] 75 mg PO BID
10/30/24 08:03
Lactate Level [Lactic Acid] Q6H
10/30/24 14:03
Lactate Level [Lactic Acid] Q6H
10/30/24 18:00
Atorvastatin [Lipitor] 80 mg PO QPM
Abnormal Lab Results
10/29/24 10/29/24
18:38 22:49
WBC 33.3 H 10^3/uL
(4.8-10.8)
RBC 3.03 L 10^6/uL
(4.70-6.10)
Hgb 9.9 L g/dL
(13.0-18.0)
Hct 29.4 L %
(39.0-52.0)
MCV 97.0 H fL
(80.0-94.0)
MCH 32.7 H pg
(27.0-31.0)
RDW 15.4 H %
(11.5-14.5)
Abs Immat Gran (auto) 0.2 H 10^3/uL
(0-0.05)
Absolute Neuts (auto) 31.1 H 10^3/uL
(1.4-6.5)
Absolute Lymphs (auto) 0.9 L 10^3/uL
(1.2-3.4)
Absolute Monos (auto) 1.0 H 10^3/uL
(0.1-0.6)
Immature Gran % 0.6 H %
(0-0.5)
Neutrophils % 93.3 H %
(42.2-75.2)
Lymphocytes % 2.6 L %
(20.5-51.1)
Sodium 133 L mmol/L
(135-145)
Creatinine 0.6 L mg/dL
(0.7-1.3)
Lactic Acid 2.8 H mmol/L
(0.7-2.0)
Calcium 7.9 L mg/dl
(8.4-10.2)
Alkaline Phosphatase 158 H U/L
(38-126)
Total Protein 5.7 L g/dl
(6.3-8.2)
Albumin 2.4 L g/dl
(3.5-5.0)
10/29/24 18:38
10/29/24 18:38
Vital Signs
Initial and Last Documented VS:
Initial Vital Signs
Temp Pulse Resp BP Pulse Ox
98.4 F 104 23 109/61 95
10/29/24 18:06 10/29/24 18:06 10/29/24 18:06 10/29/24 18:06 10/29/24 18:06
Last Documented Vital Signs
Temp Pulse Resp BP Pulse Ox
98.0 F 74 22 95/54 96
10/30/24 05:22 10/30/24 06:00 10/30/24 06:00 10/30/24 06:00 10/30/24 06:00
<Jeannie Pina DO - Last Filed: 10/30/24 06:35>
MDM/Problems Addressed
Differential Diagnosis Includes:
Concern for persistent severe herpes zoster right buttock to right posterior thigh, other consideration is secondary bacterial infection/cellulitis.
Patient is at significant risk for infectious process due to lymphoma, current chemotherapy.
He notes less than 1 day history of mild cough and is found to be influenza A positive. Low-grade fever noted.
Again, due to significant immunocompromise state, at risk for severe influenza.
Ultrasound bilateral lower extremities negative for DVT.
Bilateral lower extremity numbness may be bilateral lower extremity edema in nature, peripheral neuropathy related to herpes zoster but must also consider lumbar disc disease. It is reassuring that there is no weakness, no saddle anesthesia, no
difficulty moving bowels or bladder. Nothing to suggest acute cord syndrome.
Significantly elevated white blood cell count of 33 may be related to recent Neupogen but must also consider sepsis.
Will check lactic acid, blood cultures.
Wound culture of right posterior thigh ulcer.
Will initiate Tamiflu for acute influenza A.
Will check chest x-ray. Assess for potential pneumonitis, focal pneumonia, recurrent pleural effusion.
Will give Tylenol for fever, will give a dose of gabapentin, 300 mg for neuropathic pain.
Will consider IV antibiotic for potential cellulitis right posterior thigh/buttock.
Due to severe immunocompromise, intractable pain, acute influenza, concern for cellulitis as well as at significant risk for sepsis, patient will require acute hospitalization.
Chronic conditions affecting care: HTN, CAD, Immunosuppressed and Cancer
<Jeannie Pina DO - Last Filed: 10/30/24 06:35>
*Radiology
Radiology exam reviewed: preliminary read by ED provider (Chest x-ray shows bilateral pleural effusions, moderate in size but improved from previous) and radiology read reviewed (Venous Doppler bilateral lower extremities negative for DVT.)
*Pulse Oximetry
Patient hypoxic: no
*[employer] Interpretation
Rate: normal
Interpretation: normal
Rhythm: sinus
*Critical Care Note
Total Time (30-74mins, 75-104mins- exclusive of procedures): 30
comment:
Critical care statement: A total of 30 minutes of critical care time was provided for this patient. This includes management of unstable vital signs, evaluation of the patient at bedside, reviewing the patient's pertinent medical records, discussion
with consultants, review of old EKGs and review of pertinent medical records. This time with separate from time utilized to perform the aforementioned documented procedures
<Jeannie Pina DO - Last Filed: 10/30/24 06:35>
Update Note
Update Note:
23:50
Lactic acid 2.8. BP mildly soft with normal MAP.
Due to fever, acute influenza, elevated lactic acid, patient meets criteria for sepsis
With history of recurrent pleural effusions we will be judicious with IV fluids.
Blood cultures obtained. Will initiate IV Zosyn for potential cellulitis.
Will admit to hospital service.
Chest x-ray pending.
01:40
Chest x-ray shows moderate bilateral pleural effusions somewhat improved from previous.
BP now hypotensive, systolic 88-89.
Second liter normal saline solution infusing wide.
Will initiate Levophed.
ED Attending Note
<Freddy Norton PA-C - Last Filed: 10/29/24 18:14>
-
Portions of this chart may have been created with voice recognition software.� Occasional wrong word or��sound alike� substitutions may have occurred due to the inherent limitations of voice recognition software.
Discharge Plan
Departure
Patient Disposition: Admit
Date of Disposition: 10/29/24
Time of Disposition: 23:47
Admit to: Med/Surg
Admit to doctor: Ir[facility]
Presentation/result/management discussed w/ accepting MD/DO: Hospitalist
Condition: Serious
Covid-19: Negative COVID-19
Discharge Problem:
acute influenza A, severe herpes zoster ulcerated rash RLE, concern for cellulitis RLE, Sepsis, Non-Hodgkin's lymphoma, intractable post-herpetic neuralgia, Paresthesia of both lower extremities
Interventions
Interventions:
*Risk Screen - Suicide Last Done: 10/29/24 18:06
*General Assessment Last Done: 10/29/24 22:38
*Neglect/Abuse Screening Last Done: 10/29/24 22:38
*ED COVID-19 Vaccine History Last Done: 10/29/24 22:37
ED- Neurological Assessment Last Done: 10/29/24 23:00
[2024-10-29 19:09] LABS: ALT (SGPT) 23 U/L (0-50); AST (SGOT) 27 U/L (17-59); Albumin 2.4 g/dl (3.5-5.0); Alkaline Phosphatase 158 U/L (38-126); Blood Urea Nitrogen 17 mg/dl (9-20); Calcium 7.9 mg/dl (8.4-10.2); Carbon Dioxide 30 mmol/L (22-30); Chloride 98 mmol/L (98-107); Glucose 76 mg/dl (70-99); Potassium 4.6 mmol/L (3.5-5.1); Sodium 133 mmol/L (135-145); Total Bilirubin 0.3 mg/dl (0.2-1.3); Total Protein 5.7 g/dl (6.3-8.2); eGFR > 60.00
[2024-10-29 19:14] LABS: Hematocrit 29.4 % (39.0-52.0); Hemoglobin 9.9 g/dL (13.0-18.0); Mean Corp Hgb Conc. 33.7 g/dL (33.0-37.0); Mean Corpuscular Hgb 32.7 pg (27.0-31.0); Mean Platelet Volume 9.7 fL (7.4-10.4); NT-proBNP 1110 pg/ml; Platelet Count 175 10^3/uL (130-400); Red Blood Cell Count 3.03 10^6/uL (4.70-6.10); Red Cell Dist. Width 15.4 % (11.5-14.5); White Blood Cell Count 33.3 10^3/uL (4.8-10.8)
[2024-10-29 19:22] LABS: % Basophils 0.1 % (0-2); % Eosinophils 0.3 % (0-6); % Immature Granulocytes 0.6 % (0-0.5); % Lymphocytes 2.6 % (20.5-51.1); % Monocytes 3.1 % (1.7-9.3); % Neutrophils 93.3 % (42.2-75.2); Absolute Eosinophils 0.1 10^3/uL (0-0.7); Absolute Immature Granulocytes 0.2 10^3/uL (0-0.05); Absolute Lymphocytes 0.9 10^3/uL (1.2-3.4); Absolute Neutrophils 31.1 10^3/uL (1.4-6.5); Nucleated Red Blood Cells % 0 % (-)
[2024-10-29 20:43] VITALS: BP 107/55
[2024-10-29 21:09] LABS: COVID-19 Antigen Negative (Negative)
[2024-10-29 22:31] VITALS: BP 111/67
[2024-10-29 22:37] VITALS: BMI 31.0
[2024-10-29 23:07] LABS: Lactic Acid 2.8 mmol/L (0.7-2.0)
[2024-10-29] MEDS: TAMIFLU 75 MG PO (23:09)
[2024-10-29] MEDS: NEURONTIN 300 MG PO (23:09)
[2024-10-29] MEDS: TYLENOL 1000 MG PO (23:10)
[2024-10-29 23:16] VITALS: BP 110/55
[2024-10-30] VITALS (35 sets, daily range): BP systolic 85–117; BP diastolic 49–71; PULSE 79–84
[2024-10-30] MEDS: NSS 1000 IV ×4 (00:09→23:50)
[2024-10-30] MEDS: ZOSYN 100 IV (00:18)
--- NOTE | 2024-10-30 01:34 | HPS.HSE ---
Family Physician
-
Family Physician: JANEE Vanegas
Chief Complaint
-
Cough, Weakness, Leg discomfort
History of Present Illness
Patient is an 84y M with PMH significant for ASCVD, hypertension and non-Hodgkin's lymphoma currently on treatment who presents to ED complaining of multiple complaints. Patient suffered a fall several weeks ago with posterior scalp injury and
was hospitalized at [facility]. He received phyllis to posterior scalp laceration. During that stay he was noted to have zoster outbreak along the R buttocks and down the posterior RLE. Pateint was treated with 5 days of antiviral medication. He states
that he was discharged to home about 2 weeks ago. He notes that he has been feeling increasingly fatigued. He has had some hacking, non-productive cough.
He has increased pain in the R butt down the back of the leg.
He was recently started on gabapentin 100mg and cefuroxime by his PCP (10/24/24) without improvement in his symptoms.
Patient presented to the ED this evening for further evaluation.
Medical History
Past Medical History
Past Medical History: Reports Other
Additional Past Medical History:
Non-Hodgkin's Lymphoma
Malignant Right Pleural Effusion
ASCVD
Hypertension
Past Surgical History: Reports Other
Additional Past Surgical History:
PTCA with Stent
Left Axillary Lymph Node Dissection / Biopsy
Left TKA
Cataracts
Weekly Thoracenteses - Right
Social History
Tobacco: Non-smoker
Alcohol: None
Drug: None
Family History
Family History: Not pertinent
Allergies / Home Medications
Allergies reflects when Allergies were last updated in [employer].
Home Medications with original date entered in [employer]
Allergy/Medication List:
Allergies
Allergy/AdvReac Type Severity Reaction Status Date / Time
No Known Allergies Allergy Verified 10/29/24 18:06
Home Medications
aspirin 81 mg chewable tablet 81 mg PO DAILY ##0 04/28/16
atorvastatin 80 mg tablet 80 mg PO QPM ##30 04/28/16
metoprolol tartrate 25 mg tablet 25 mg PO BID ##60 04/28/16
losartan 25 mg tablet 25 mg PO DAILY ##30 06/22/17
ticagrelor 90 mg tablet (Brilinta) 90 mg PO BID ##60 06/22/17
acetaminophen 500 mg tablet 1,000 mg PO Q6H PRN pain 10/10/24
cefuroxime axetil 500 mg tablet 500 mg PO Q12H 10/29/24
gabapentin 100 mg tablet 100 mg PO DAILY 10/29/24
lidocaine 4 % topical cream 1 applic topical DAILY PRN before subQ port access 10/29/24
multivitamin 1 tab PO DAILY 10/29/24
Review of Systems
-
History Source: Patient
A 12 point ROS was completed and negative except as noted: Yes
Constitutional: Reports Fatigue; Denies Fever or Chills
EENT: Denies Sore Throat
Respiratory: Reports Cough and Trouble Breathing
Cardiac: Denies Chest Pain or Palpitations
Abdomen/GI: Denies Abdominal Pain, Nausea, Vomiting or Diarrhea
: Denies Dysuria or Frequency
Musculoskeletal: Reports Edema
Skin: Reports Other (Painful rash RLE)
Neurological: Reports Weakness; Denies Dizzy or Headache
Psych: Denies Depression or Anxiety
Physical Exam
Vital Signs
Vital Signs
Temp Pulse Resp BP Pulse Ox
99.4 F 84 15 85/51 93
10/29/24 22:31 10/30/24 01:08 10/30/24 01:08 10/30/24 01:08 10/30/24 01:01
Physical Exam
General: Other (84y M in mild distress due to pain.)
HEENT: Moist mucous membranes and PERRLA
Respiratory: Other (Decreased BS at bases - R > L. No wheezes / rales / rhonchi.)
Cardiac: S1/S2 and Regular Rhythm; No Murmur
GI: Other (Obese, softly distended. Not tender. Pos BS.)
Musculoskeletal: Other (1-2+ pitting edema b/l ankles.)
Skin: Other (Erythema with ulcerations along prior zoster distribution from R buttock to posterior knee. Confluent ulceration posterior thigh. Erythema. No bleeding / discharge.)
Neuro: AO x 3 and Nonfocal/grossly intact
Psych: No Agitated or Anxious
Laboratory Results
-
10/29/24 18:38
10/29/24 18:38
Laboratory Results
Lactic Acid 2.8 mmol/L (0.7-2.0) H 10/29/24 22:49
Total Bilirubin 0.3 mg/dl (0.2-1.3) 10/29/24 18:38
AST 27 U/L (17-59) 10/29/24 18:38
ALT 23 U/L (0-50) 10/29/24 18:38
Alkaline Phosphatase 158 U/L (38-126) H 10/29/24 18:38
Impression/Plan
-
A/P: Patient is an 84y M with PMH significant for NHL on chemotherapy, ASCVD and hypertension who presents to ED complaining of weakness, cough and LE pain / swelling.
Sepsis
- Admit for further evaluation and treatment.
- Patient presents with leukocytosis (see below), tachycardia and tachypnea.
- Potential sources include influenza, skin / wounds, etc.
- IVFs support +/- pressors as needed to maintain perfusion.
- Follow serial lactate (initially 2.8).
- Treat individual infectious issues as noted below.
- Follow for clinical improvement.
RLE Ulcerated Wounds / Cellulitis
Recent Herpes Zoster RLE
- s/p antiviral therapy and no apparent active vesicular lesions, etc at presents.
- Prior vesicle sites appear to have ulcerated with large, confluent areas of skin breakdown / ulceration, erythema, significant pain.
- IV Zosyn for now.
- ID, Surgery and Wound Care evaluations for additional recommendations.
- Continue efforts at pain control - increased gabapentin dose. Add Dilaudid for now for severe pain.
Influenza A
- Some recent symptoms of cough, weakness.
- Patient did have his seasonal flu vaccine.
- Tamiflu BID.
- Follow proper precautions.
- Follow for hypoxemia, worsening symptoms, etc.
NHL
Leukocytosis
Malignant Right Pleural Effusion
- Currently on bendamustine / Rituxan. 2 cycles thus far. Most recent 6 days ago.
- Received Neupogen on Sunday - now with leukocytosis.
- Notes indicate prophylactic Bactrim; however, patient notes that he does not take this.
- Anemia slightly worse than prior - follow cell counts for changes.
- Hold further chemo / immunosuppressants acutely.
- Last had thoracentesis on Sunday - scheduled for repeat again this Sunday.
- Consider IR evaluation later this week for thora if needed.
ASCVD
- Stable. No complaints of chest pain, dyspnea, etc.
- Continue ASA daily. Will hold Brilinta for now.
- Holding parameters for metoprolol.
Benign Hypertension
- Currently relatively hypotensive secondary to sepsis.
- Holding ARB, etc acutely.
- Resume meds when appropriate.
DVT Prophylaxis: Subcut Heparin
Code Status: Full
[2024-10-30 03:25] LABS: Lactic Acid 1.1 mmol/L (0.7-2.0)
[2024-10-30 05:20] LABS: ALT (SGPT) 19 U/L (0-50); AST (SGOT) 37 U/L (17-59); Albumin 2.1 g/dl (3.5-5.0); Alkaline Phosphatase 214 U/L (38-126); Blood Urea Nitrogen 19 mg/dl (9-20); Calcium 7.9 mg/dl (8.4-10.2); Carbon Dioxide 28 mmol/L (22-30); Chloride 101 mmol/L (98-107); Direct Bilirubin 0.1 mg/dl (0.0-0.4); Estimated Creatinine Clearance 115 ml/min; Glucose 84 mg/dl (70-99); Sodium 133 mmol/L (135-145); Total Bilirubin 0.4 mg/dl (0.2-1.3); Total Protein 5.3 g/dl (6.3-8.2); eGFR > 60.00
[2024-10-30] MEDS: ZOSYN 50 IV ×2 (05:35→13:21)
[2024-10-30 06:15] LABS: Hematocrit 25.8 % (39.0-52.0); Hemoglobin 8.5 g/dL (13.0-18.0); Mean Corp Hgb Conc. 32.9 g/dL (33.0-37.0); Mean Corpuscular Hgb 32.9 pg (27.0-31.0); Mean Platelet Volume 9.7 fL (7.4-10.4); Platelet Count 158 10^3/uL (130-400); Red Blood Cell Count 2.58 10^6/uL (4.70-6.10); Red Cell Dist. Width 15.4 % (11.5-14.5)
[2024-10-30] MEDS: LOW STRENGTH ASPIRIN 81 MG PO (08:16)
[2024-10-30] MEDS: NEURONTIN 300 MG PO ×3 (08:16→21:45)
[2024-10-30] MEDS: TAMIFLU 75 MG PO ×2 (08:16→21:45)
[2024-10-30] MEDS: HEPARIN 5000 UNITS SC ×3 (08:16→23:48)
--- NOTE | 2024-10-30 10:06 | W.PN.HOSP.TC ---
Today's Communication/Plan
-
IV antibiotics pending cultures.
Wound care.
Wean off IV fluids if stable BP
Oncology consultation
Tamiflu
Assessment / Plan
Assessment / Plan
Impression:
Patient is an 84y M with PMH significant for NHL on chemotherapy, ASCVD and hypertension who presents to ED complaining of weakness, cough and LE pain / swelling.
Sepsis present on admission
Potential sources: Flu/influenza A. Patient does have a right-sided hip and buttock post shingle wound, stage III sacral wound with clean bases and cellulitis
Immunosuppressed state on chemotherapy for non-Hodgkin's lymphoma.
Leukocytosis post G-CSF
Conditions prior to admission:
Non-Hodgkin's lymphoma.
Malignant right pleural effusion status postthoracentesis
ASCVD
Benign hypertension
Plan:
Sepsis present on admission
Potential sources as above.
Currently afebrile and nontoxic-appearing.
Hypotension present on admission responded to IV fluid bolus. Did not require pressors.
Lactic acid trending down and normalized.
RLE Ulcerated Wounds / Cellulitis/stage III sacral pressure wound with clear base
Recent Herpes Zoster RLE
- s/p antiviral therapy and no apparent active vesicular lesions, etc at presents.
- Prior vesicle sites appear to have ulcerated with large, confluent areas of skin breakdown / ulceration, erythema, significant pain.
- IV Zosyn for now.
No evidence of purulence collection on exam
Initiated on IV Zosyn covering cellulitis
ID consultation
Hold off on surgical relation at this point.
Postherpetic neuralgia
Continue Neurontin
Influenza A
- Some recent symptoms of cough, weakness.
- Patient did have his seasonal flu vaccine.
- Tamiflu BID.
- Follow proper precautions.
- Follow for hypoxemia, worsening symptoms, etc.
NHL
Leukocytosis
Malignant Right Pleural Effusion
- Currently on bendamustine / Rituxan. 2 cycles thus far. Most recent 6 days ago.
- Received Neupogen on Sunday - now with leukocytosis.
- Notes indicate prophylactic Bactrim; however, patient notes that he does not take this.
- Anemia slightly worse than prior - follow cell counts for changes.
- Hold further chemo / immunosuppressants acutely.
- Last had thoracentesis on Sunday - scheduled for repeat again this Sunday.
- Monitor for pleural fluid reaccumulation.
Primary oncology consulted
ASCVD
- Stable. No complaints of chest pain, dyspnea, etc.
- Continue ASA daily. Will hold Brilinta for now.
- Holding parameters for metoprolol.
Benign Hypertension
- Currently relatively hypotensive secondary to sepsis.
- Holding ARB, etc acutely.
- Resume meds when appropriate.
DVT Prophylaxis: Subcut Heparin
Anticipated Discharge: > 48 hours
Subjective/Interval History
-
Date of Service: October 30, 2024
Objective Data
-
Labs:
Laboratory Results
10/30/24
04:25
WBC 33.0 H
Hgb 8.5 L
Hct 25.8 L
Plt Count 158
Sodium 133 L
Potassium 4.0
Chloride 101
Carbon Dioxide 28
BUN 19
Creatinine 0.6 L
Glucose 84
Calcium 7.9 L
Total Bilirubin 0.4
AST 37
ALT 19
Alkaline Phosphatase 214 H
Vital Signs:
Vital Signs
Temp Pulse Resp BP Pulse Ox
97.5 F 76 16 97/56 100
10/30/24 08:26 10/30/24 08:25 10/30/24 08:25 10/30/24 08:25 10/30/24 08:28
I&O
10/29/24 10/30/24 10/31/24
06:59 06:59 06:59
Output Total 800 / 800
Balance -800 / -800
Physical Exam
-
General: Well Developed and No Apparent Distress
HEENT: Normocephalic, Atraumatic and Moist Mucous Membranes
Respiratory: Clear to Auscultation
Cardiac: Regular Rhythm and S1/S2; Negative Murmur, Rub or Gallop
GI: Soft, Nontender, Nondistended and Normal Bowel Sounds; Negative Organomegaly
Rectal: Deferred by Provider
Musculoskeletal: No Clubbing, No Cyanosis and No Edema
Skin: Rash (Right buttock/posterior hip vesicular interaction with sloughing epithelium. No purulence appreciated) and Ulcers (Sacral stage III ulcer with clear base)
Neuro: Awake, Alert, Oriented, AO x 3 and Nonfocal/Grossly Intact
--- NOTE | 2024-10-30 10:31 | WOUNDNOTE ---
SACRAL/BUTTOCKS/THIGH (POSTERIOR)
--- NOTE | 2024-10-30 10:34 | WOUNDNOTE ---
RLE (ANTERIOR LATERAL)
--- NOTE | 2024-10-30 10:34 | WOUNDNOTE ---
L ANKLE (POSTERIOR MEDIAL)
--- NOTE | 2024-10-30 10:38 | WOUNDNOTE ---
WO RN note: Patient admitted with sepsis, RLE cellulitis, wounds, weakness, leg pain. Patient lives at home. Fall several weeks ago. Patient sleeps in his recliner.
See H&P for complete history.
PMH: ASCVD, HTN, non Hodgkin's lymphoma on chemo and radiation, PTCA with stent, L TKA, R thoracentesis, venous stasis.
Wound Location and type/assessment: Patient admitted with: Coccyx stage 3 pressure injury, pink with white fibrin, R sacral/buttocks deep dermal ulcer, R posterior thigh large area of deep dermal ulcerations d/t post Zoster lesions. LE's with
couple dermal openings/blisters d/t LE edema. Patient follows [facility] and uses gauze wraps and knee high Tubigrip.
Appetite:
Pressure redistribution devices in place:
Plan:
Will confirm orders with hospitalist and update nurse.
Updated care plan and will follow as needed.
Note to case management of equipment requested for discharge:
Recommend follow up at wound care center upon discharge.
--- NOTE | 2024-10-30 10:50 | CON.ONC ---
Impression
Impression
marginal zone lymphoma
recurrent malignant pleural effusion
VZV s/p therapeutic antiviral therapy
bacterial cellulitis superimposed on Zoster
influenza
anemia
leukocytosis infection +/- pegfligrastim
Plan
Plan
antiviral, abx per ID/primary service. Follow cultures
symptoms support, pain management
check QIG
Op follow up with Dr. Mayes will be arrnaged upon discharge
Patient History
History of Present Illness
84yo M with marginal zone lymphoma admitted known to Dr. Mayes s/p C2 RBenda 10/23 presented with increased fatigue and non-productive cough. He has increasing pain in the area of his VZV shingles on right buttock and down his posterior RLE. He was
treated with 5 ddays of antiviral therapy. He was recently started on gabapentin and cefuroxime with his primary care provider without improvement of his symptoms. He has been admitted for management of sepsis with influenza A, RLE ulcerated wound
likely cellulitis superimposed over VZV site.
He was recently hospitalized at [facility] after a mechanical fall that required scalp phyllis to a laceration. He has a recurrent malignant pleural effusion that has required multiple thoracentesis, most recent 10/24/2024. He started RBenda
09/18 and is s/p cycle 2 10/23/2024. He received pegfilgrastim 10/27.
Past-Medical/Surgical History
PMH
Malignant Right Pleural Effusion
ASCVD
Hypertension
Past Surgical History:
PTCA with Stent
Left Axillary Lymph Node Dissection / Biopsy
Left TKA
Cataracts
Social History
Tobacco: Non-smoker
Alcohol: None
Drug: None
Family History
Family History: Not pertinent
Patient Medication
�Medication �Instructions �Recorded �Confirmed �Last Taken �Type
aspirin 81 mg chewable tablet 81 mg PO DAILY ##0 04/28/16 10/29/24 10/24/24 Rx
atorvastatin 80 mg tablet 80 mg PO QPM ##30 04/28/16 10/29/24 10/23/24 Rx
metoprolol tartrate 25 mg tablet 25 mg PO BID ##60 04/28/16 10/29/24 10/29/24 09:00 Rx
25
losartan 25 mg tablet 25 mg PO DAILY ##30 06/22/17 10/29/24 10/24/24 Rx
ticagrelor 90 mg tablet (Brilinta) 90 mg PO BID ##60 06/22/17 10/29/24 10/29/24 09:00 Rx
90
acetaminophen 500 mg tablet 1,000 mg PO Q6H PRN pain 10/10/24 10/29/24 10/24/24 History
cefuroxime axetil 500 mg tablet 500 mg PO Q12H 10/29/24 10/29/24 Unknown History
gabapentin 100 mg tablet 100 mg PO DAILY 10/29/24 10/29/24 Unknown History
lidocaine 4 % topical cream 1 applic topical DAILY PRN before 10/29/24 10/30/24 Unknown History
subQ port access
multivitamin 1 tab PO DAILY 10/29/24 10/29/24 Unknown History
Active Medications
Generic Name Dose Route Start Last Admin
Trade Name Freq PRN Reason Stop Dose Admin
Acetaminophen 650 mg 10/30/24 02:03
Acetaminophen 325 Mg Tablet PO 11/27/24 02:02
Q4HPRN PRN
Mild Pain / Temp > 101
Aspirin 81 mg 10/30/24 08:00 10/30/24 08:16
Aspirin 81 Mg Chewable Tablet PO 11/27/24 07:59 81 mg
DAILY TRINY Administration
Atorvastatin Calcium 80 mg 10/30/24 18:00
Atorvastatin (Lipitor) 80 Mg Tablet PO 11/27/24 17:59
QPM TRINY
Gabapentin 300 mg 10/30/24 08:00 10/30/24 08:16
Gabapentin 300 Mg Capsule PO 11/27/24 07:59 300 mg
TID TRINY Administration
Heparin Sodium 5,000 units 10/30/24 08:00 10/30/24 08:16
Heparin 5,000 Units/Ml 1 Ml Vial SC 11/27/24 07:59 5,000 units
Q8 TRINY Administration
Hydromorphone HCl 0.5 mg 10/30/24 02:03
Hydromorphone 0.5 Mg/0.5 Ml Syringe IV 11/13/24 02:02
Q4HPRN PRN
Severe Pain
Piperacillin Sod/Tazobactam Sod 3.375 gram in 50 mls @ 100 mls/hr 10/30/24 06:00 10/30/24 05:35
Zosyn IV 50 mls
Q6H TRINY Administration
Sodium Chloride 1,000 mls @ 125 mls/hr 10/30/24 02:03 10/30/24 02:53
Nss IV 1,000 mls
.Q8H TRINY Administration
Ondansetron HCl 4 mg 10/30/24 02:03
Ondansetron 4 Mg/2 Ml Vial IV 11/27/24 02:02
Q6HPRN PRN
nausea and vomiting
Oseltamivir Phosphate 75 mg 10/30/24 08:00 10/30/24 08:16
Oseltamivir (Tamiflu) 75 Mg Capsule PO 11/03/24 08:01 75 mg
BID TRINY Administration
Sodium Chloride 0 flush 10/30/24 03:00
Sodium Chloride 0.9% (Flush) Syringe IV 11/27/24 02:59
PER PROTOCOL TRINY
Review of Systems
-
ROS notable for HPI, otherwise negative
Physical Exam
-
General: distress due to pain
HEENT: Moist mucous membranes
Respiratory: Decreased BS at bases - R > L. No wheezes / rales / rhonchi
Cardiac: S1/S2 and Regular Rhythm; No Murmur
GI: Obese, softly distended. Not tender.
Musculoskeletal:1-2+ pitting edema b/l ankles
Skin: Erythema with ulcerations along prior zoster distribution from R buttock to posterior knee. Confluent ulceration posterior thigh. Erythema. No bleeding / discharge
Neuro: AO x 3
Labs
Lab Results
WBC 33.0 10^3/uL (4.8-10.8) H 10/30/24 04:25
RBC 2.58 10^6/uL (4.70-6.10) L 10/30/24 04:25
Hgb 8.5 g/dL (13.0-18.0) L 10/30/24 04:25
Hct 25.8 % (39.0-52.0) L 10/30/24 04:25
MCV 100.0 fL (80.0-94.0) H 10/30/24 04:25
MCH 32.9 pg (27.0-31.0) H 10/30/24 04:25
MCHC 32.9 g/dL (33.0-37.0) L 10/30/24 04:25
RDW 15.4 % (11.5-14.5) H 10/30/24 04:25
Plt Count 158 10^3/uL (130-400) 10/30/24 04:25
MPV 9.7 fL (7.4-10.4) 10/30/24 04:25
Abs Immat Gran (auto) 0.2 10^3/uL (0-0.05) H 10/29/24 18:38
Absolute Neuts (auto) 31.1 10^3/uL (1.4-6.5) H 10/29/24 18:38
Absolute Lymphs (auto) 0.9 10^3/uL (1.2-3.4) L 10/29/24 18:38
Absolute Monos (auto) 1.0 10^3/uL (0.1-0.6) H 10/29/24 18:38
Absolute Eos (auto) 0.1 10^3/uL (0-0.7) 10/29/24 18:38
Absolute Basos (auto) 0.0 10^3/uL (0-0.2) 10/29/24 18:38
Immature Gran % 0.6 % (0-0.5) H 10/29/24 18:38
Neutrophils % 93.3 % (42.2-75.2) H 10/29/24 18:38
Lymphocytes % 2.6 % (20.5-51.1) L 10/29/24 18:38
Monocytes % 3.1 % (1.7-9.3) 10/29/24 18:38
Eosinophils % 0.3 % (0-6) 10/29/24 18:38
Basophils % 0.1 % (0-2) 10/29/24 18:38
Creatinine 0.6 mg/dL (0.7-1.3) L 10/30/24 04:25
Vital Signs
Vital Signs
Temp Pulse Resp BP Pulse Ox
97.5 F 76 16 97/56 100
10/30/24 08:26 10/30/24 08:25 10/30/24 08:25 10/30/24 08:25 10/30/24 08:28
--- NOTE | 2024-10-30 11:01 | WOUNDNOTE ---
WO RN note: Patient admitted with sepsis, RLE cellulitis, wounds, weakness, leg pain. Patient lives at home. Fall several weeks ago. Patient sleeps in his recliner chair at home d/t breathing issues.
See H&P for complete history.
PMH: ASCVD, HTN, non Hodgkin's lymphoma on chemo and radiation, PTCA with stent, L TKA, R thoracentesis, venous stasis.
Wound Location and type/assessment: Patient admitted with: Coccyx stage 3 pressure injury, pink with white fibrin, R sacral/buttocks deep dermal ulcer, R posterior thigh large area of deep dermal ulcerations d/t post Zoster lesions. LE's with
couple dermal openings/blisters d/t LE edema. +1 LE edema. +Pedal pulses. Patient follows [facility] and uses gauze wraps and knee high Tubigrip.
Appetite: good.
Pressure redistribution devices in place: ED stretcher. He slept in wide recliner chair with air chair cushion last night. Air chair cushion.
Plan: Patient seen with Dr. Burton who approved local wound care. Dressings applied to coccyx/buttocks, R thigh, Le's. 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 Discussed with RN Elizabeth who will coordinate switching stretcher
with air bed.
Care plan to be updated and will follow as needed.
Note to case management of equipment requested for discharge: Air mattress if goes to SNF and VN if not already in place if goes home when discharged.
--- NOTE | 2024-10-30 15:20 | CON.ID ---
Consultation
-
Date/Time Consultation Requested: 10/30/2024 0203
Date/Time Consultation Performed: 10/30/2024 1513
Requesting Provider: Dr. Gayle
Performing Provider: Dr. Mckenzie
Reason for Consultation: Right lower extremity cellulitis; influenza A
Chief Complaint / Past History
History of Present Illness
Jay Jay Lott is an 84-year-old man being evaluated at the request of Dr. Gayle in regards to cellulitis, sepsis and influenza. History is obtained from chart review, along with patient interview.
The patient has a significant past medical history of NHL diagnosed in August 2024. He additionally has a recurrent malignant pleural effusion requiring weekly right-sided thoracentesis, which was last performed approximately 5 days prior.
According to reviewed records, he sustained a fall at home approximately 2 to 3 weeks prior to admission and was admitted to [facility]. He was admitted for 4 days, during which time he was found to have shingles and treated with a
course of Valtrex. He has continued to have post-herpetic neuralgia and was started on gabapentin 100 mg 3 times daily, which has not been found to be controlling his discomfort.
He also notes cough began yesterday, with feelings of 'getting a cold'. He notes that the right posterior buttock and posterior thigh discomfort has been getting worse and notes it is 'near debilitating.
Workup in the emergency room revealed a marked leukocytosis of 33K, although patient received Neupogen several days ago. COVID testing was found to be negative, but the patient has tested positive for influenza A. Oseltamavir has been initiated.
Past History
Additional Past Medical History:
CAD
HTN
Dyslipidemia
Non-Hodgkin's lymphoma
Recurrent malignant pleural effusion
Additional Past Surgical History:
Bilateral cataract surgery
Allergy History:
No Known Allergies Allergy (Verified 10/29/24 18:06)
Medications Reviewed: Yes
Current Antibiotics:
Zozyn 3.375 gm IV q6
Tamiflu 75 mg PO BID
Social History
Tobacco: Non-Smoker
Alcohol: Occasional
Drug: None
Personal:
Living: With Family
Employment: Retired
Family History
Family History: Not Pertinent
Review of Systems
Vital Signs
Temp Pulse Resp BP Pulse Ox
97.8 F 86 21 95/51 97
10/30/24 12:09 10/30/24 12:09 10/30/24 11:04 10/30/24 12:09 10/30/24 12:09
Physical Exam
Physical Exam
Constitutional: No Acute Distress, Comfortable and Non-toxic
Eyes: No Conjunctival Hemorrhage and Sclera Anicteric
Oral: No Thrush and No Ulcers
Cardiovascular: Regular Rate and S1/S2; Negative S3/S4
Pulmonary: Clear; Negative Wheezes, Rales or Rhonchi
Gastrointestinal: Soft, Non Tender, Non Distended, Normal Bowel Sounds, No Rebound and No Guarding
Genito-Urinary: Negative Villafuerte
Extremities: Edema (Marked lymphedema of the RLE (buttocks -> feet))
Wound: Other (Superficial wounds noted on posterior right thigh from buttocks to posterior knee area. Wounds are clean, without purulence. Minimal to no periwound erythema.)
Neurological: Awake and Alert
Psychological: Calm
.
Lab / Diagnostic Study Results
10/30/24 04:25
10/30/24 04:25
Abs Immat Gran (auto) 0.2 10^3/uL (0-0.05) H 10/29/24 18:38
Absolute Neuts (auto) 31.1 10^3/uL (1.4-6.5) H 10/29/24 18:38
Absolute Lymphs (auto) 0.9 10^3/uL (1.2-3.4) L 10/29/24 18:38
Absolute Monos (auto) 1.0 10^3/uL (0.1-0.6) H 10/29/24 18:38
Absolute Basos (auto) 0.0 10^3/uL (0-0.2) 10/29/24 18:38
Immature Gran % 0.6 % (0-0.5) H 10/29/24 18:38
Neutrophils % 93.3 % (42.2-75.2) H 10/29/24 18:38
Lymphocytes % 2.6 % (20.5-51.1) L 10/29/24 18:38
Monocytes % 3.1 % (1.7-9.3) 10/29/24 18:38
Eosinophils % 0.3 % (0-6) 10/29/24 18:38
Basophils % 0.1 % (0-2) 10/29/24 18:38
Lactic Acid 1.1 mmol/L (0.7-2.0) 10/30/24 02:52
Microbiology Results
Micro:
10/29/24 22:49 Wound Culture - Pending
Leg - Right Gram Stain - Preliminary
10/30/24 00:15 Blood Culture - Pending
Blood/Venous
10/29/24 22:49 Blood Culture - Pending
Blood/Venous
10/29/24 20:45 Influenza Types A & B ([facility]INA) - Final
Nasal Swab Influenza A Positive, NAAT
Assessment / Plan
Influenza A
� Vaccinated
� Mild disease
Non-Hodgkin's lymphoma
-Currently receiving chemotherapy
Leukocytosis
-Recent administration of Neupogen
History of shingles
- No active lesions at present.
Posterior thigh wounds secondary to lymphedema
- No evidence of infection at present
Recommendations:
D/C further zosyn as no evidence of cellulitis.
Local care to posterior right leg wounds. PRN dakin's solution to control bioburden.
Continue with tamiflu for 5 days, although may need extended duration given immunosuppression from chemotherapy, depending on patient symptomatology.
Monitor white count and temperature curve.
[2024-10-30] MEDS: LIPITOR 80 MG PO (17:00)
--- NOTE | 2024-10-30 19:58 | PTCARENOTE ---
Assumed care of pt from previous nurse. pt denies pain. pt call lebron is within reach, pt rings gary. oob to chair, dressing cdi. will cont to monitor.
[2024-10-30] MEDS: NSS IV (23:50)
[2024-10-31 05:31] LABS: Blood Urea Nitrogen 17 mg/dl (9-20); Calcium 7.8 mg/dl (8.4-10.2); Carbon Dioxide 27 mmol/L (22-30); Chloride 101 mmol/L (98-107); Estimated Creatinine Clearance 115 ml/min; Glucose 84 mg/dl (70-99); Potassium 3.8 mmol/L (3.5-5.1); Sodium 133 mmol/L (135-145); eGFR > 60.00
[2024-10-31] MEDS: NSS IV (07:22)
[2024-10-31] MEDS: LOW STRENGTH ASPIRIN 81 MG PO (07:50)
[2024-10-31] MEDS: TAMIFLU 75 MG PO (07:50)
[2024-10-31] MEDS: NEURONTIN 300 MG PO (07:50)
[2024-10-31] MEDS: HEPARIN 5000 UNITS SC (07:50)
[2024-10-31 08:13] VITALS: BP 121/59
--- NOTE | 2024-10-31 08:20 | W.PN.ONC2 ---
Today's Communication / Plan
-
-
Impression
Impression
marginal zone lymphoma
recurrent malignant pleural effusion
VZV s/p therapeutic antiviral therapy
influenza on tamiflu
anemia
leukocytosis infection +/- pegfligrastim
Plan
Plan
antiviral, abx per ID
Follow cultures
symptoms support, pain management
wound care
check QIG
Op follow up with Dr. Mayes will be arranged upon discharge
Subjective/Objective
Subjective
no new complaints
Vital Signs:
Vital Signs
Temp Pulse Resp BP Pulse Ox
98.7 F 80 20 113/66 94
10/30/24 23:51 10/30/24 23:51 10/30/24 23:51 10/30/24 23:54 10/31/24 01:26
Lab Results:
Laboratory Data
WBC 33.0 10^3/uL (4.8-10.8) H 10/30/24 04:25
Hgb 8.5 g/dL (13.0-18.0) L 10/30/24 04:25
Plt Count 158 10^3/uL (130-400) 10/30/24 04:25
eGFR > 60.00 10/31/24 04:30
Physical Exam
General: distress due to pain
HEENT: Moist mucous membranes
Respiratory: Decreased BS at bases - R > L. No wheezes / rales / rhonchi
Cardiac: S1/S2 and Regular Rhythm; No Murmur
GI: Obese, softly distended. Not tender.
Musculoskeletal:1-2+ pitting edema b/l ankles
Skin: Erythema with ulcerations along prior zoster distribution from R buttock to posterior knee. Confluent ulceration posterior thigh. Erythema. No bleeding / discharge
Neuro: AO x 3
Orders
Orders
Orders From Last 24 Hours
10/31/24 04:30
Immunoglobulin Panel IN AM
[2024-10-31 09:00] VITALS: BP 97/66
[2024-10-31 09:10] LABS: % Basophils 0.1 % (0-2); % Eosinophils 1.2 % (0-6); % Immature Granulocytes 3.7 % (0-0.5); % Lymphocytes 5.2 % (20.5-51.1); % Monocytes 7.4 % (1.7-9.3); % Neutrophils 82.4 % (42.2-75.2); Absolute Eosinophils 0.3 10^3/uL (0-0.7); Absolute Immature Granulocytes 0.8 10^3/uL (0-0.05); Absolute Lymphocytes 1.1 10^3/uL (1.2-3.4); Absolute Monocytes 1.6 10^3/uL (0.1-0.6); Absolute Neutrophils 17.3 10^3/uL (1.4-6.5); Hematocrit 28.4 % (39.0-52.0); Hemoglobin 9.4 g/dL (13.0-18.0); Mean Corp Hgb Conc. 33.1 g/dL (33.0-37.0); Mean Corpuscular Hgb 32.6 pg (27.0-31.0); Mean Corpuscular Volume 98.6 fL (80.0-94.0); Mean Platelet Volume 9.5 fL (7.4-10.4); Nucleated Red Blood Cells % 0 % (-); Platelet Count 163 10^3/uL (130-400); Red Blood Cell Count 2.88 10^6/uL (4.70-6.10); Red Cell Dist. Width 15.6 % (11.5-14.5)
[2024-10-31] MEDS: HYDROPHOR 1 APPLIC TOPICAL (09:37)
[2024-10-31 10:00] VITALS: BP 91/56
--- NOTE | 2024-10-31 10:44 | W.DS.TRANS ---
DC Summary - [employer]
-
Discharge Instructions:
Discharge Diagnosis/Procedures Influenza A.
Transient hypotension responding to IV fluids
pain
Non-Hodgkin's lymphoma on chemotherapy.
History of malignant right pleural effusion.
ASCVD
Benign hypertension
Diet Regular
Instructions:
Stand-Alone Forms:
Changes to Home Medications: Yes
Discharge Medications:
DC Medications w/original date entered in [employer]
aspirin 81 mg chewable tablet 81 mg PO DAILY ##0 04/28/16
atorvastatin 80 mg tablet 80 mg PO QPM ##30 04/28/16
metoprolol tartrate 25 mg tablet 25 mg PO BID ##60 04/28/16
losartan 25 mg tablet 25 mg PO DAILY ##30 06/22/17
ticagrelor 90 mg tablet (Brilinta) 90 mg PO BID ##60 06/22/17
acetaminophen 500 mg tablet 1,000 mg PO Q6HPRN PRN MILD pain 10/10/24
gabapentin 100 mg tablet 100 mg PO TID Pain 10/29/24
multivitamin 1 tab PO DAILY Supplement 10/29/24
lidocaine 4 % topical patch 1 patch topical DAILYPRN PRN KNEE PAIN 10/30/24
oseltamivir 75 mg capsule 75 mg PO BID #7 caps 10/31/24
Home Medication Changes
Completed 5 days of Tamiflu.
Holding losartan for another week with relative hypotension
Pending Results: No
--- NOTE | 2024-10-31 11:23 | CM ---
Addendum entered by Dhara Joshi RN 10/31/24 12:26:
CM updated patient's daughter.
PLAN: [facility]
Original Note:
CM reviewed medical records. Plan for discharge to home. Patient's daughter would prefer [facility]. Referral sent to [facility] RN liasion.
--- NOTE | 2024-10-31 11:42 | WOUNDNOTE ---
[facility] RN note: Changed patient's coccyx dressing. Sacral and thigh dressings were changed as per patient and are D+I. LE dressings changed. No change. Patient's compression socks applied. Updated discharge instructions after discussing with
Violet. Updated Dr. Burton and RN Pravin. Skin on patient's heels intact. Coccyx ulcer about the same with less moisture. Patient plans to use his Velcro compression garments at home. Wound care supplies given. Instructed patient to take air chair
cushion with him.
--- NOTE | 2024-10-31 12:26 | VNURNOTE ---
Home Health Liaison spoke via phone with don landon to discuss [facility] nurse/therapy, visits, schedule and homebound status. Moreno is agreeable and understands that visits at home will be 2-3 x per week to assess and teach medical management.
Patient is aware that [facility] will contact them for start of care in 1-2 days after discharge from .
[facility] referral completed in [facility]
[2024-10-31 14:41] VITALS: BP 111/70
[2024-10-31] MEDS: HEPARIN SC (15:01)
--- NOTE | 2024-11-02 12:36 | W.PN.UPDATE ---
Update Note
Progress Note Update
wound culture positive for S aureus methicillin, Enterobacter cloacae. d/w ID. Wound cultures would be colonization. recommended treatment with Dakin.
[2024-11-03 18:10] LABS: IgG 614 mg/dl (700-1600); IgM 77 mg/dl (40-230)
[2024-11-03 22:33] LABS: IgA 1717 mg/dl (70-400)
== END 2024-10-31 15:31 | disposition home or self-care (01) | DRG 865 ==
LOC: ED 01:49
PROVIDERS: Nurse Practitioner Acute Care; Physician Assistant Medical; ADMITTING PHYSICIAN Hospitalist; ATTENDING PHYSICIAN Internal Medicine; CONSULT PHYSICIAN Internal Medicine Hematology & Oncology; CONSULT PHYSICIAN Internal Medicine Infectious Disease; EMERGENCY PHYSICIAN Emergency Medicine; FAMILY PHYSICIAN Nurse Practitioner Family
DX: J09.X9 Influenza due to identified novel influenza A virus with other manifestations (principal); L89.153 Pressure ulcer of sacral region, stage 3; B02.29 Other postherpetic nervous system involvement; C85.90 Non-Hodgkin lymphoma, unspecified, unspecified site; J91.0 Malignant pleural effusion; L03.115 Cellulitis of right lower limb; D84.821 Immunodeficiency due to drugs; E87.20 Acidosis, unspecified; L97.111 Non-pressure chronic ulcer of right thigh limited to breakdown of skin; R20.0 Anesthesia of skin; M79.89 Other specified soft tissue disorders; G62.9 Polyneuropathy, unspecified; H26.9 Unspecified cataract; I25.10 Atherosclerotic heart disease of native coronary artery without angina pectoris; I10 Essential (primary) hypertension; E66.9 Obesity, unspecified; I95.9 Hypotension, unspecified; R60.0 Localized edema; E78.5 Hyperlipidemia, unspecified; D64.9 Anemia, unspecified; I89.0 Lymphedema, not elsewhere classified; Z60.2 Problems related to living alone; Z96.652 Presence of left artificial knee joint; Z95.5 Presence of coronary angioplasty implant and graft; Z92.21 Personal history of antineoplastic chemotherapy; Z11.52 Encounter for screening for COVID-19; Z79.82 Long term (current) use of aspirin; Z79.02 Long term (current) use of antithrombotics/antiplatelets; Z68.31 Body mass index [BMI] 31.0-31.9, adult
CPT/HCPCS: 51701; 51798; 71046; 80048; 80053; 82248; 82784; 83605; 83880; 85025; 85027; 87040; 87070; 87077; 87147; 87186; 87205; 87502; 87811; 93970; 96361; 96365; 96375; 97166; 99291

== ENCOUNTER → 2024-11-03 08:09 | Outpatient (REF) | payer MEDICARE, SELFPAY | LOC: WOUND 08:09 | PROVIDERS: ATTENDING PHYSICIAN Surgery; FAMILY PHYSICIAN Nurse Practitioner Family | DX: I87.313 Chronic venous hypertension (idiopathic) with ulcer of bilateral lower extremity (principal); L97.112 Non-pressure chronic ulcer of right thigh with fat layer exposed; L89.153 Pressure ulcer of sacral region, stage 3; L97.222 Non-pressure chronic ulcer of left calf with fat layer exposed; L97.822 Non-pressure chronic ulcer of other part of left lower leg with fat layer exposed; I87.2 Venous insufficiency (chronic) (peripheral); I89.0 Lymphedema, not elsewhere classified; I73.9 Peripheral vascular disease, unspecified; I25.10 Atherosclerotic heart disease of native coronary artery without angina pectoris; E66.09 Other obesity due to excess calories; I21.19 ST elevation (STEMI) myocardial infarction involving other coronary artery of inferior wall; I10 Essential (primary) hypertension | CPT/HCPCS: 99213 ==

== ENCOUNTER → 2024-11-04 06:29 | Outpatient (REF) | payer MEDICARE, SELFPAY ==
[2024-11-04 07:25] VITALS: BP 96/55; BP_SYST 72
[2024-11-04 07:50] VITALS: BP 102/58; BP_SYST 83
[2024-11-04 07:58] VITALS: BP 102/58
== END ==
LOC: RADI 06:29
PROVIDERS: ATTENDING PHYSICIAN Internal Medicine Hematology & Oncology; FAMILY PHYSICIAN Nurse Practitioner Family
DX: J90 Pleural effusion, not elsewhere classified (principal)
CPT/HCPCS: 32555; 71045

== ENCOUNTER → 2024-11-11 10:52 | Outpatient (REF) | payer MEDICARE, SELFPAY | LOC: WOUND 10:52 | PROVIDERS: ATTENDING PHYSICIAN Surgery; FAMILY PHYSICIAN Nurse Practitioner Family | DX: I87.313 Chronic venous hypertension (idiopathic) with ulcer of bilateral lower extremity (principal); L97.112 Non-pressure chronic ulcer of right thigh with fat layer exposed; L89.153 Pressure ulcer of sacral region, stage 3; L97.222 Non-pressure chronic ulcer of left calf with fat layer exposed; L97.822 Non-pressure chronic ulcer of other part of left lower leg with fat layer exposed; I87.2 Venous insufficiency (chronic) (peripheral); I89.0 Lymphedema, not elsewhere classified; I73.9 Peripheral vascular disease, unspecified; I25.10 Atherosclerotic heart disease of native coronary artery without angina pectoris; E66.09 Other obesity due to excess calories; I21.19 ST elevation (STEMI) myocardial infarction involving other coronary artery of inferior wall; I10 Essential (primary) hypertension | CPT/HCPCS: 99213 ==

== ENCOUNTER → 2024-11-14 08:07 | Outpatient (REF) | payer MEDICARE, SELFPAY ==
[2024-11-14 08:26] VITALS: BP 114/68; BP_SYST 91
[2024-11-14 09:57] VITALS: BP 109/68
== END ==
LOC: RADI 08:07
PROVIDERS: ATTENDING PHYSICIAN Internal Medicine Hematology & Oncology
DX: J90 Pleural effusion, not elsewhere classified (principal)
CPT/HCPCS: 32555; 71045

== ENCOUNTER → 2024-11-17 07:40 | Outpatient (REF) | payer MEDICARE, SELFPAY | LOC: WOUND 07:40 | PROVIDERS: ATTENDING PHYSICIAN Surgery; FAMILY PHYSICIAN Nurse Practitioner Family | DX: I87.313 Chronic venous hypertension (idiopathic) with ulcer of bilateral lower extremity (principal); L97.112 Non-pressure chronic ulcer of right thigh with fat layer exposed; L89.153 Pressure ulcer of sacral region, stage 3; L97.222 Non-pressure chronic ulcer of left calf with fat layer exposed; L97.822 Non-pressure chronic ulcer of other part of left lower leg with fat layer exposed; I87.2 Venous insufficiency (chronic) (peripheral); I73.9 Peripheral vascular disease, unspecified | CPT/HCPCS: 99213 ==

== ENCOUNTER → 2024-11-17 09:12 | Outpatient (REF) | payer MEDICARE, SELFPAY ==
[2024-11-19 11:45] LABS: Albumin 2.44 g/dL (3.75-5.01); Alpha 1 Globulin 0.41 g/dL (0.19-0.46); Alpha 2 Globulin 0.76 g/dL (0.48-1.05); Free Kappa Light Chains,Quant 20.06 mg/L (3.30-19.40); Free Lambda Light Chains,Quant 15.12 mg/L (5.71-26.30); IgA 1046 mg/dL (68-408); IgG 680 mg/dL (768-1632); IgM 102 mg/dL (35-263); Immunofixation Electrophoresis IFE Done; Kappa/Lambda Fr Light Ratio 1.33 (0.26-1.65); Monoclonal Protein 0.85 g/dL (<=0.00); Total Protein-Electrophoresis 5.6 g/dL (6.3-8.2)
== END ==
LOC: REG 09:12
PROVIDERS: ATTENDING PHYSICIAN Internal Medicine Hematology & Oncology; FAMILY PHYSICIAN Nurse Practitioner Family
DX: C85.90 Non-Hodgkin lymphoma, unspecified, unspecified site (principal)
CPT/HCPCS: 36415; 82784; 83521; 84155; 84165; 86334

== ENCOUNTER → 2024-11-19 15:41 | Outpatient (REF) | payer MEDICARE, SELFPAY ==
[2024-11-19 11:46] LABS: % Basophils 0.5 % (0-2); % Eosinophils 3.3 % (0-6); % Immature Granulocytes 0.4 % (0-0.5); % Lymphocytes 22.4 % (20.5-51.1); % Monocytes 13.6 % (1.7-9.3); % Neutrophils 59.8 % (42.2-75.2); Absolute Eosinophils 0.3 10^3/uL (0-0.7); Absolute Lymphocytes 1.7 10^3/uL (1.2-3.4); Absolute Neutrophils 4.6 10^3/uL (1.4-6.5); Hematocrit 31.7 % (39.0-52.0); Hemoglobin 10.1 g/dL (13.0-18.0); Mean Corp Hgb Conc. 31.9 g/dL (33.0-37.0); Mean Corpuscular Hgb 32.4 pg (27.0-31.0); Mean Corpuscular Volume 101.6 fL (80.0-94.0); Mean Platelet Volume 8.8 fL (7.4-10.4); Platelet Count 274 10^3/uL (130-400); Red Blood Cell Count 3.12 10^6/uL (4.70-6.10); Red Cell Dist. Width 15.9 % (11.5-14.5); White Blood Cell Count 7.6 10^3/uL (4.8-10.8)
[2024-11-19 12:48] LABS: ALT (SGPT) 18 U/L (0-50); AST (SGOT) 24 U/L (17-59); Albumin 2.5 g/dl (3.5-5.0); Alkaline Phosphatase 109 U/L (38-126); Blood Urea Nitrogen 16 mg/dl (9-20); Calcium 7.9 mg/dl (8.4-10.2); Carbon Dioxide 32 mmol/L (22-30); Chloride 99 mmol/L (98-107); Glucose 102 mg/dl (70-99); Potassium 4.2 mmol/L (3.5-5.1); Sodium 135 mmol/L (135-145); Total Bilirubin 0.4 mg/dl (0.2-1.3); Total Protein 5.2 g/dl (6.3-8.2); eGFR > 60.00
== END ==
LOC: OIDL 15:41
PROVIDERS: ATTENDING PHYSICIAN Internal Medicine Hematology & Oncology
DX: C85.90 Non-Hodgkin lymphoma, unspecified, unspecified site (principal)
CPT/HCPCS: 80053; 85025

== ENCOUNTER → 2024-11-21 12:18 | Outpatient (REF) | payer MEDICARE, SELFPAY ==
[2024-11-21 12:45] VITALS: BP 95/54; BP_SYST 76
[2024-11-21 13:07] VITALS: BP 80/46; BP_SYST 77
[2024-11-21 13:15] VITALS: BP 100/66
[2024-11-21 13:23] VITALS: BP 100/66
== END ==
LOC: RADI 12:18
PROVIDERS: ATTENDING PHYSICIAN Internal Medicine Hematology & Oncology; FAMILY PHYSICIAN Nurse Practitioner Family
DX: J90 Pleural effusion, not elsewhere classified (principal)
CPT/HCPCS: 32555; 71045

== ENCOUNTER → 2024-11-25 07:13 | Outpatient (REF) | payer MEDICARE, SELFPAY | LOC: MRI 3T 07:13 | PROVIDERS: ATTENDING PHYSICIAN Internal Medicine Hematology & Oncology; FAMILY PHYSICIAN Nurse Practitioner Family | DX: C85.90 Non-Hodgkin lymphoma, unspecified, unspecified site (principal) | CPT/HCPCS: 70553; A9575 ==

== ENCOUNTER → 2024-11-28 06:22 | Outpatient (REF) | payer MEDICARE, SELFPAY ==
[2024-11-28 07:31] VITALS: BP 94/63; BP_SYST 92
[2024-11-28 08:02] VITALS: BP 99/59
== END ==
LOC: RADI 06:22
PROVIDERS: ATTENDING PHYSICIAN Internal Medicine Hematology & Oncology; FAMILY PHYSICIAN Nurse Practitioner Family
DX: J90 Pleural effusion, not elsewhere classified (principal)
CPT/HCPCS: 32555; 71045

== ENCOUNTER → 2024-12-01 08:22 | Outpatient (REF) | payer MEDICARE, SELFPAY | LOC: WOUND 08:22 | PROVIDERS: ATTENDING PHYSICIAN Surgery; FAMILY PHYSICIAN Nurse Practitioner Family | DX: I87.313 Chronic venous hypertension (idiopathic) with ulcer of bilateral lower extremity (principal); L97.112 Non-pressure chronic ulcer of right thigh with fat layer exposed; L89.153 Pressure ulcer of sacral region, stage 3; L97.222 Non-pressure chronic ulcer of left calf with fat layer exposed; L97.822 Non-pressure chronic ulcer of other part of left lower leg with fat layer exposed; I87.2 Venous insufficiency (chronic) (peripheral); I89.0 Lymphedema, not elsewhere classified; I73.9 Peripheral vascular disease, unspecified; I25.10 Atherosclerotic heart disease of native coronary artery without angina pectoris; E66.09 Other obesity due to excess calories; I21.19 ST elevation (STEMI) myocardial infarction involving other coronary artery of inferior wall; I10 Essential (primary) hypertension | CPT/HCPCS: 99213 ==

== ENCOUNTER → 2024-12-02 08:26 | Outpatient (REF) | payer MEDICARE, SELFPAY ==
[2024-12-02 08:45] VITALS: BP 105/69; BP_SYST 83
[2024-12-02 09:07] VITALS: BP 92/57
== END ==
LOC: RADI 08:26
PROVIDERS: ATTENDING PHYSICIAN Internal Medicine Hematology & Oncology; FAMILY PHYSICIAN Nurse Practitioner Family
DX: J90 Pleural effusion, not elsewhere classified (principal)
CPT/HCPCS: 32555; 71045

== ENCOUNTER → 2024-12-05 12:30 | Outpatient (REF) | payer MEDICARE, SELFPAY ==
[2024-12-05 13:05] VITALS: BP 106/73; BP_SYST 83
[2024-12-05 13:56] VITALS: BP 112/66; BP_SYST 73
[2024-12-05 14:06] VITALS: BP 112/66
== END ==
LOC: RADI 12:30
PROVIDERS: ATTENDING PHYSICIAN Internal Medicine Hematology & Oncology; FAMILY PHYSICIAN Nurse Practitioner Family
DX: J90 Pleural effusion, not elsewhere classified (principal)
CPT/HCPCS: 32555; 71045

== ENCOUNTER → 2024-12-12 08:50 | Outpatient (REF) | payer MEDICARE, SELFPAY ==
[2024-12-12 09:03] VITALS: BP 100/55; BP_SYST 91
== END ==
LOC: RADI 08:50
PROVIDERS: ATTENDING PHYSICIAN Internal Medicine Hematology & Oncology; FAMILY PHYSICIAN Nurse Practitioner Family
DX: J90 Pleural effusion, not elsewhere classified (principal)
CPT/HCPCS: 32555; 71045

== ENCOUNTER → 2024-12-16 07:59 | Outpatient (REF) | payer MEDICARE, SELFPAY ==
[2024-12-16 09:27] LABS: % Basophils 0.7 % (0-2); % Eosinophils 3.3 % (0-6); % Immature Granulocytes 0.8 % (0-0.5); % Lymphocytes 27.8 % (20.5-51.1); % Monocytes 12.5 % (1.7-9.3); % Neutrophils 54.9 % (42.2-75.2); Absolute Basophils 0.1 10^3/uL (0-0.2); Absolute Eosinophils 0.3 10^3/uL (0-0.7); Absolute Immature Granulocytes 0.1 10^3/uL (0-0.05); Absolute Lymphocytes 2.1 10^3/uL (1.2-3.4); Absolute Neutrophils 4.2 10^3/uL (1.4-6.5); Hematocrit 36.6 % (39.0-52.0); Hemoglobin 11.7 g/dL (13.0-18.0); Mean Platelet Volume 9.7 fL (7.4-10.4); Nucleated Red Blood Cells % 0 % (-); Platelet Count 175 10^3/uL (130-400); Red Blood Cell Count 3.66 10^6/uL (4.70-6.10); Red Cell Dist. Width 15.5 % (11.5-14.5); White Blood Cell Count 7.6 10^3/uL (4.8-10.8)
[2024-12-16 09:54] LABS: ALT (SGPT) 20 U/L (0-50); AST (SGOT) 30 U/L (17-59); Albumin 2.6 g/dl (3.5-5.0); Alkaline Phosphatase 119 U/L (38-126); Blood Urea Nitrogen 16 mg/dl (9-20); Calcium 8.4 mg/dl (8.4-10.2); Carbon Dioxide 34 mmol/L (22-30); Chloride 97 mmol/L (98-107); Glucose 86 mg/dl (70-99); Potassium 4.4 mmol/L (3.5-5.1); Sodium 133 mmol/L (135-145); Total Bilirubin 0.4 mg/dl (0.2-1.3); Total Protein 4.9 g/dl (6.3-8.2); eGFR > 60.00
[2024-12-18 06:05] LABS: Beta-2-Microglobulin 5.9 mg/L (<=3.0)
[2024-12-19 04:40] LABS: Albumin 2.78 g/dL (3.75-5.01); Alpha 2 Globulin 0.69 g/dL (0.48-1.05); Free Kappa Light Chains,Quant 16.42 mg/L (3.30-19.40); Free Lambda Light Chains,Quant 13.92 mg/L (5.71-26.30); IgA 308 mg/dL (68-408); IgG 652 mg/dL (768-1632); IgM 86 mg/dL (35-263); Immunofixation Electrophoresis IFE Done; Kappa/Lambda Fr Light Ratio 1.18 (0.26-1.65); Total Protein-Electrophoresis 5.3 g/dL (6.3-8.2)
== END ==
LOC: REG 07:59
PROVIDERS: ATTENDING PHYSICIAN Internal Medicine Hematology & Oncology
DX: C85.90 Non-Hodgkin lymphoma, unspecified, unspecified site (principal)
CPT/HCPCS: 36415; 80053; 82232; 82784; 83521; 84155; 84165; 85025; 86334

== ENCOUNTER → 2024-12-16 08:14 | Outpatient (REF) | payer MEDICARE, SELFPAY | LOC: WOUND 08:14 | PROVIDERS: ATTENDING PHYSICIAN Surgery; FAMILY PHYSICIAN Nurse Practitioner Family | DX: L89.153 Pressure ulcer of sacral region, stage 3 (principal); L97.112 Non-pressure chronic ulcer of right thigh with fat layer exposed; L97.822 Non-pressure chronic ulcer of other part of left lower leg with fat layer exposed; I87.2 Venous insufficiency (chronic) (peripheral); I89.0 Lymphedema, not elsewhere classified; I73.9 Peripheral vascular disease, unspecified; I25.10 Atherosclerotic heart disease of native coronary artery without angina pectoris; E66.09 Other obesity due to excess calories; I21.19 ST elevation (STEMI) myocardial infarction involving other coronary artery of inferior wall; I10 Essential (primary) hypertension | CPT/HCPCS: 99213 ==

== ENCOUNTER → 2024-12-19 08:39 | Outpatient (REF) | payer MEDICARE, SELFPAY ==
[2024-12-19 08:45] VITALS: BP 101/58; BP_SYST 65
[2024-12-19 09:30] VITALS: BP 114/66
== END ==
LOC: RADI 08:39
PROVIDERS: ATTENDING PHYSICIAN Internal Medicine Hematology & Oncology; FAMILY PHYSICIAN Nurse Practitioner Family
DX: C80.1 Malignant (primary) neoplasm, unspecified (principal); J91.0 Malignant pleural effusion
CPT/HCPCS: 32555; 71045

== ENCOUNTER → 2024-12-26 08:36 | Outpatient (REF) | payer MEDICARE, SELFPAY ==
[2024-12-26 08:50] VITALS: BP_SYST 85
[2024-12-26 09:07] VITALS: BP 103/68; BP_SYST 88
== END ==
LOC: RADI 08:36
PROVIDERS: ATTENDING PHYSICIAN Internal Medicine Hematology & Oncology; FAMILY PHYSICIAN Nurse Practitioner Family
DX: J90 Pleural effusion, not elsewhere classified (principal)
CPT/HCPCS: 32555; 71045

== ENCOUNTER → 2024-12-30 08:27 | Outpatient (REF) | payer MEDICARE, SELFPAY | LOC: WOUND 08:27 | PROVIDERS: ATTENDING PHYSICIAN Surgery; FAMILY PHYSICIAN Nurse Practitioner Family | DX: L89.153 Pressure ulcer of sacral region, stage 3 (principal); L97.112 Non-pressure chronic ulcer of right thigh with fat layer exposed; L97.822 Non-pressure chronic ulcer of other part of left lower leg with fat layer exposed; I87.2 Venous insufficiency (chronic) (peripheral); I89.0 Lymphedema, not elsewhere classified; I73.9 Peripheral vascular disease, unspecified; I25.10 Atherosclerotic heart disease of native coronary artery without angina pectoris; E66.09 Other obesity due to excess calories; I21.19 ST elevation (STEMI) myocardial infarction involving other coronary artery of inferior wall; I10 Essential (primary) hypertension | CPT/HCPCS: 97597 ==

== ENCOUNTER → 2025-01-02 08:11 | Outpatient (REF) | payer MEDICARE, SELFPAY ==
[2025-01-02 08:46] VITALS: BP 105/65; BP_SYST 75
[2025-01-02 09:27] VITALS: BP 110/67; BP_SYST 72
== END ==
LOC: RADI 08:11
PROVIDERS: ATTENDING PHYSICIAN Internal Medicine Hematology & Oncology; FAMILY PHYSICIAN Nurse Practitioner Family
DX: J90 Pleural effusion, not elsewhere classified (principal)
CPT/HCPCS: 32555; 71045

== ENCOUNTER → 2025-01-09 07:20 | Outpatient (REF) | payer MEDICARE, SELFPAY ==
[2025-01-09 07:35] VITALS: BP 114/71; BP_SYST 88
[2025-01-09 08:00] VITALS: BP 104/63; BP_SYST 99
[2025-01-09 08:15] VITALS: BP 104/63
== END ==
LOC: RADI 07:20
PROVIDERS: ATTENDING PHYSICIAN Internal Medicine Hematology & Oncology; FAMILY PHYSICIAN Family Medicine
DX: J90 Pleural effusion, not elsewhere classified (principal)
CPT/HCPCS: 32555; 71045

== ENCOUNTER → 2025-01-13 08:21 | Outpatient (REF) | payer MEDICARE, SELFPAY | LOC: WOUND 08:21 | PROVIDERS: ATTENDING PHYSICIAN Surgery; FAMILY PHYSICIAN Nurse Practitioner Family | DX: L89.153 Pressure ulcer of sacral region, stage 3 (principal); L97.112 Non-pressure chronic ulcer of right thigh with fat layer exposed; L97.822 Non-pressure chronic ulcer of other part of left lower leg with fat layer exposed; I87.2 Venous insufficiency (chronic) (peripheral); I25.10 Atherosclerotic heart disease of native coronary artery without angina pectoris; E66.09 Other obesity due to excess calories; I21.19 ST elevation (STEMI) myocardial infarction involving other coronary artery of inferior wall; I10 Essential (primary) hypertension | CPT/HCPCS: 11042 ==

== ENCOUNTER → 2025-01-16 08:13 | Outpatient (REF) | payer MEDICARE, SELFPAY ==
[2025-01-16 08:30] VITALS: BP 122/69; BP_SYST 71
[2025-01-16 08:42] VITALS: BP 103/75; BP_SYST 81
== END ==
LOC: RADI 08:13
PROVIDERS: ATTENDING PHYSICIAN Internal Medicine Hematology & Oncology
DX: J90 Pleural effusion, not elsewhere classified (principal)
CPT/HCPCS: 32555; 71045

== ENCOUNTER → 2025-01-19 08:32 | Outpatient (REF) | payer MEDICARE, SELFPAY ==
[2025-01-21 09:46] LABS: Albumin 2.78 g/dL (3.75-5.01); Alpha 2 Globulin 0.68 g/dL (0.48-1.05); Free Kappa Light Chains,Quant 14.89 mg/L (3.30-19.40); Free Lambda Light Chains,Quant 12.94 mg/L (5.71-26.30); IgA 145 mg/dL (68-408); IgG 557 mg/dL (768-1632); IgM 63 mg/dL (35-263); Immunofixation Electrophoresis IFE Done; Kappa/Lambda Fr Light Ratio 1.15 (0.26-1.65)
== END ==
LOC: REG 08:32
PROVIDERS: ATTENDING PHYSICIAN Internal Medicine Hematology & Oncology; FAMILY PHYSICIAN Nurse Practitioner Family
DX: C85.90 Non-Hodgkin lymphoma, unspecified, unspecified site (principal)
CPT/HCPCS: 36415; 82784; 83521; 84155; 84165; 86334

== ENCOUNTER → 2025-01-20 10:08 | Outpatient (REF) | payer MEDICARE, SELFPAY ==
[2025-01-20 11:05] LABS: ALT (SGPT) 21 U/L (0-50); AST (SGOT) 32 U/L (17-59); Albumin 2.9 g/dl (3.5-5.0); Alkaline Phosphatase 116 U/L (38-126); Blood Urea Nitrogen 20 mg/dl (9-20); Carbon Dioxide 33 mmol/L (22-30); Chloride 102 mmol/L (98-107); Glucose 109 mg/dl (70-99); Potassium 4.6 mmol/L (3.5-5.1); Sodium 140 mmol/L (135-145); Total Bilirubin 0.4 mg/dl (0.2-1.3); eGFR > 60.00
[2025-01-20 12:06] LABS: Mean Corp Hgb Conc. 32.4 g/dL (33.0-37.0); Mean Corpuscular Hgb 32.2 pg (27.0-31.0); Mean Corpuscular Volume 99.2 fL (80.0-94.0); Platelet Count 278 10^3/uL (130-400); Red Blood Cell Count 3.73 10^6/uL (4.70-6.10); Red Cell Dist. Width 15.2 % (11.5-14.5); White Blood Cell Count 7.3 10^3/uL (4.8-10.8)
[2025-01-20 13:16] LABS: % Basophils 0.5 % (0-2); % Eosinophils 5.6 % (0-6); % Immature Granulocytes 0.8 % (0-0.5); % Lymphocytes 30.6 % (20.5-51.1); % Monocytes 14.6 % (1.7-9.3); % Neutrophils 47.9 % (42.2-75.2); Absolute Eosinophils 0.4 10^3/uL (0-0.7); Absolute Immature Granulocytes 0.1 10^3/uL (0-0.05); Absolute Lymphocytes 2.2 10^3/uL (1.2-3.4); Absolute Monocytes 1.1 10^3/uL (0.1-0.6); Absolute Neutrophils 3.5 10^3/uL (1.4-6.5); Nucleated Red Blood Cells % 0 % (-)
== END ==
LOC: REG 10:08
PROVIDERS: ATTENDING PHYSICIAN Internal Medicine Hematology & Oncology; FAMILY PHYSICIAN Nurse Practitioner Family
DX: C85.90 Non-Hodgkin lymphoma, unspecified, unspecified site (principal)
CPT/HCPCS: 36415; 80053; 85025

== ENCOUNTER → 2025-01-23 10:28 | Outpatient (REF) | payer MEDICARE, SELFPAY ==
[2025-01-23 10:45] VITALS: BP 97/79; BP_SYST 70
[2025-01-23 11:00] VITALS: BP 101/64; BP_SYST 72
[2025-01-23 11:19] VITALS: BP 101/64
== END ==
LOC: RADI 10:28
PROVIDERS: ATTENDING PHYSICIAN Internal Medicine Hematology & Oncology; FAMILY PHYSICIAN Nurse Practitioner Family
DX: J90 Pleural effusion, not elsewhere classified (principal)
CPT/HCPCS: 32555; 71045

== ENCOUNTER → 2025-01-27 08:21 | Outpatient (REF) | payer MEDICARE, SELFPAY | LOC: WOUND 08:21 | PROVIDERS: ATTENDING PHYSICIAN Surgery; FAMILY PHYSICIAN Nurse Practitioner Family | DX: L89.153 Pressure ulcer of sacral region, stage 3 (principal); I87.2 Venous insufficiency (chronic) (peripheral); I89.0 Lymphedema, not elsewhere classified; I73.9 Peripheral vascular disease, unspecified; I25.10 Atherosclerotic heart disease of native coronary artery without angina pectoris; E66.09 Other obesity due to excess calories; I21.19 ST elevation (STEMI) myocardial infarction involving other coronary artery of inferior wall; I10 Essential (primary) hypertension | CPT/HCPCS: 11042 ==

== ENCOUNTER → 2025-01-30 12:01 | Outpatient (REF) | payer MEDICARE, SELFPAY ==
[2025-01-30 12:44] VITALS: BP 104/63; BP_SYST 82
[2025-01-30 13:00] VITALS: BP 103/62
== END ==
LOC: RADI 12:01
PROVIDERS: ATTENDING PHYSICIAN Internal Medicine Hematology & Oncology; FAMILY PHYSICIAN Nurse Practitioner Family
DX: J90 Pleural effusion, not elsewhere classified (principal)
CPT/HCPCS: 32555; 71045

== ENCOUNTER → 2025-02-06 07:27 | Outpatient (REF) | payer MEDICARE, SELFPAY ==
[2025-02-06 08:26] LABS: % Basophils 0.5 % (0-2); % Eosinophils 1.3 % (0-6); % Immature Granulocytes 1.5 % (0-0.5); % Monocytes 8.2 % (1.7-9.3); % Neutrophils 81.5 % (42.2-75.2); Absolute Basophils 0.1 10^3/uL (0-0.2); Absolute Eosinophils 0.2 10^3/uL (0-0.7); Absolute Immature Granulocytes 0.2 10^3/uL (0-0.05); Absolute Monocytes 1.2 10^3/uL (0.1-0.6); Absolute Neutrophils 12.1 10^3/uL (1.4-6.5); Hematocrit 33.7 % (39.0-52.0); Mean Corp Hgb Conc. 32.6 g/dL (33.0-37.0); Mean Corpuscular Hgb 32.5 pg (27.0-31.0); Mean Corpuscular Volume 99.7 fL (80.0-94.0); Mean Platelet Volume 9.8 fL (7.4-10.4); Nucleated Red Blood Cells % 0 % (-); Platelet Count 226 10^3/uL (130-400); Red Blood Cell Count 3.38 10^6/uL (4.70-6.10); White Blood Cell Count 14.8 10^3/uL (4.8-10.8)
[2025-02-06 09:00] LABS: ALT (SGPT) 23 U/L (0-50); AST (SGOT) 29 U/L (17-59); Albumin 2.9 g/dl (3.5-5.0); Alkaline Phosphatase 137 U/L (38-126); Blood Urea Nitrogen 21 mg/dl (9-20); Calcium 8.9 mg/dl (8.4-10.2); Carbon Dioxide 35 mmol/L (22-30); Chloride 98 mmol/L (98-107); Glucose 86 mg/dl (70-99); LDH 221 U/L (120-246); Potassium 4.8 mmol/L (3.5-5.1); Sodium 137 mmol/L (135-145); Total Bilirubin 0.5 mg/dl (0.2-1.3); Total Protein 4.9 g/dl (6.3-8.2); eGFR > 60.00
== END ==
LOC: REG 07:27
PROVIDERS: ATTENDING PHYSICIAN Internal Medicine Hematology & Oncology; FAMILY PHYSICIAN Nurse Practitioner Family
DX: C85.90 Non-Hodgkin lymphoma, unspecified, unspecified site (principal)
CPT/HCPCS: 36415; 80053; 83615; 84550; 85025

== ENCOUNTER → 2025-02-10 10:29 | Outpatient (REF) | payer MEDICARE, SELFPAY ==
[2025-02-10 11:02] VITALS: BP 111/66; BP_SYST 85
[2025-02-10 12:15] VITALS: BP 103/66
== END ==
LOC: RADI 10:29
PROVIDERS: ATTENDING PHYSICIAN Internal Medicine Hematology & Oncology
DX: J90 Pleural effusion, not elsewhere classified (principal)
CPT/HCPCS: 32555; 71045

== ENCOUNTER → 2025-02-10 15:15 | Outpatient (REF) | payer MEDICARE, SELFPAY | LOC: WOUND 15:15 | PROVIDERS: ATTENDING PHYSICIAN Surgery; FAMILY PHYSICIAN Nurse Practitioner Family | DX: L89.153 Pressure ulcer of sacral region, stage 3 (principal); I87.2 Venous insufficiency (chronic) (peripheral); L97.211 Non-pressure chronic ulcer of right calf limited to breakdown of skin; I89.0 Lymphedema, not elsewhere classified; I73.9 Peripheral vascular disease, unspecified; I25.10 Atherosclerotic heart disease of native coronary artery without angina pectoris; E66.09 Other obesity due to excess calories; I21.19 ST elevation (STEMI) myocardial infarction involving other coronary artery of inferior wall; I10 Essential (primary) hypertension | CPT/HCPCS: 11042; 99213 ==

== ENCOUNTER → 2025-02-17 10:15 | Outpatient (REF) | payer MEDICARE, SELFPAY ==
[2025-02-17 11:38] LABS: % Basophils 0.4 % (0-2); % Eosinophils 2.3 % (0-6); % Immature Granulocytes 0.8 % (0-0.5); % Lymphocytes 19.5 % (20.5-51.1); % Monocytes 11.9 % (1.7-9.3); % Neutrophils 65.1 % (42.2-75.2); Absolute Eosinophils 0.2 10^3/uL (0-0.7); Absolute Immature Granulocytes 0.1 10^3/uL (0-0.05); Absolute Lymphocytes 1.5 10^3/uL (1.2-3.4); Absolute Monocytes 0.9 10^3/uL (0.1-0.6); Absolute Neutrophils 5.2 10^3/uL (1.4-6.5); Hematocrit 32.8 % (39.0-52.0); Hemoglobin 10.9 g/dL (13.0-18.0); Mean Corp Hgb Conc. 33.2 g/dL (33.0-37.0); Mean Corpuscular Hgb 32.4 pg (27.0-31.0); Mean Corpuscular Volume 97.6 fL (80.0-94.0); Mean Platelet Volume 9.4 fL (7.4-10.4); Nucleated Red Blood Cells % 0 % (-); Platelet Count 192 10^3/uL (130-400); Red Blood Cell Count 3.36 10^6/uL (4.70-6.10); White Blood Cell Count 7.9 10^3/uL (4.8-10.8)
== END ==
LOC: REG 10:15
PROVIDERS: ATTENDING PHYSICIAN Internal Medicine Hematology & Oncology
DX: C85.90 Non-Hodgkin lymphoma, unspecified, unspecified site (principal)
CPT/HCPCS: 36415; 85025

== ENCOUNTER → 2025-02-18 14:20 | Outpatient (REF) | payer MEDICARE, SELFPAY ==
[2025-02-18 09:50] LABS: ALT (SGPT) 20 U/L (0-50); AST (SGOT) 29 U/L (17-59); Albumin 2.9 g/dl (3.5-5.0); Alkaline Phosphatase 101 U/L (38-126); Blood Urea Nitrogen 18 mg/dl (9-20); Calcium 8.2 mg/dl (8.4-10.2); Carbon Dioxide 31 mmol/L (22-30); Chloride 102 mmol/L (98-107); Glucose 121 mg/dl (70-99); Potassium 3.5 mmol/L (3.5-5.1); Sodium 136 mmol/L (135-145); Total Bilirubin 0.5 mg/dl (0.2-1.3); Total Protein 4.7 g/dl (6.3-8.2); eGFR > 60.00
== END ==
LOC: OIDL 14:20
PROVIDERS: ATTENDING PHYSICIAN Internal Medicine Hematology & Oncology
DX: C85.90 Non-Hodgkin lymphoma, unspecified, unspecified site (principal)
CPT/HCPCS: 80053

== ENCOUNTER → 2025-02-20 07:39 | Outpatient (REF) | payer MEDICARE, SELFPAY ==
[2025-02-20 08:00] VITALS: BP 95/59; BP_SYST 74
[2025-02-20 08:27] VITALS: BP 90/59; BP_SYST 72
== END ==
LOC: RADI 07:39
PROVIDERS: ATTENDING PHYSICIAN Internal Medicine Hematology & Oncology; FAMILY PHYSICIAN Nurse Practitioner Family
DX: J90 Pleural effusion, not elsewhere classified (principal)
CPT/HCPCS: 32555; 71045

== ENCOUNTER → 2025-02-26 08:19 | Outpatient (REF) | payer MEDICARE, SELFPAY | LOC: WOUND 08:19 | PROVIDERS: ATTENDING PHYSICIAN Surgery; FAMILY PHYSICIAN Nurse Practitioner Family | DX: L89.153 Pressure ulcer of sacral region, stage 3 (principal); I87.2 Venous insufficiency (chronic) (peripheral); I89.0 Lymphedema, not elsewhere classified; I73.9 Peripheral vascular disease, unspecified; I25.10 Atherosclerotic heart disease of native coronary artery without angina pectoris; E66.09 Other obesity due to excess calories; I21.19 ST elevation (STEMI) myocardial infarction involving other coronary artery of inferior wall; I10 Essential (primary) hypertension | CPT/HCPCS: 11042 ==

== ENCOUNTER → 2025-02-26 09:33 | Outpatient (REF) | payer MEDICARE, SELFPAY ==
[2025-02-26 09:49] VITALS: BP 98/61; BP_SYST 66
== END ==
LOC: RADI 09:33
PROVIDERS: ATTENDING PHYSICIAN Internal Medicine Hematology & Oncology; FAMILY PHYSICIAN Nurse Practitioner Family
DX: J90 Pleural effusion, not elsewhere classified (principal)
CPT/HCPCS: 32555; 71045

== ENCOUNTER → 2025-03-06 06:49 | Outpatient (REF) | payer MEDICARE, SELFPAY ==
[2025-03-06 07:38] VITALS: BP 106/63; BP_SYST 80
[2025-03-06 07:58] VITALS: BP 93/64; BP_SYST 80
[2025-03-06 08:07] VITALS: BP 117/74; BP_SYST 77
[2025-03-06 08:11] VITALS: BP 117/74
== END ==
LOC: RADI 06:49
PROVIDERS: ATTENDING PHYSICIAN Internal Medicine Hematology & Oncology; FAMILY PHYSICIAN Nurse Practitioner Family
DX: J90 Pleural effusion, not elsewhere classified (principal)
CPT/HCPCS: 32555; 71045

== ENCOUNTER → 2025-03-06 06:52 | Outpatient (REF) | payer MEDICARE, SELFPAY ==
[2025-03-06 07:20] LABS: % Basophils 0.5 % (0-2); % Eosinophils 0.1 % (0-6); % Immature Granulocytes 0.5 % (0-0.5); % Lymphocytes 17.7 % (20.5-51.1); % Monocytes 12.8 % (1.7-9.3); % Neutrophils 68.4 % (42.2-75.2); Absolute Lymphocytes 1.3 10^3/uL (1.2-3.4); Absolute Neutrophils 5.1 10^3/uL (1.4-6.5); Hematocrit 33.7 % (39.0-52.0); Hemoglobin 11.2 g/dL (13.0-18.0); Mean Corp Hgb Conc. 33.2 g/dL (33.0-37.0); Mean Corpuscular Hgb 33.3 pg (27.0-31.0); Mean Corpuscular Volume 100.3 fL (80.0-94.0); Mean Platelet Volume 9.2 fL (7.4-10.4); Nucleated Red Blood Cells % 0 % (-); Platelet Count 207 10^3/uL (130-400); Red Blood Cell Count 3.36 10^6/uL (4.70-6.10); Red Cell Dist. Width 16.6 % (11.5-14.5); White Blood Cell Count 7.5 10^3/uL (4.8-10.8)
[2025-03-06 08:14] LABS: ALT (SGPT) 21 U/L (0-50); AST (SGOT) 31 U/L (17-59); Albumin 3.3 g/dl (3.5-5.0); Alkaline Phosphatase 138 U/L (38-126); Blood Urea Nitrogen 20 mg/dl (9-20); Calcium 8.8 mg/dl (8.4-10.2); Carbon Dioxide 32 mmol/L (22-30); Chloride 102 mmol/L (98-107); Glucose 102 mg/dl (70-99); LDH 189 U/L (120-246); Potassium 4.2 mmol/L (3.5-5.1); Sodium 138 mmol/L (135-145); Total Bilirubin 0.4 mg/dl (0.2-1.3); Total Protein 5.4 g/dl (6.3-8.2); Uric Acid 6.5 mg/dl (3.5-8.5); eGFR > 60.00
== END ==
LOC: REG 06:52
PROVIDERS: ATTENDING PHYSICIAN Internal Medicine Hematology & Oncology; FAMILY PHYSICIAN Nurse Practitioner Family
DX: C85.90 Non-Hodgkin lymphoma, unspecified, unspecified site (principal)
CPT/HCPCS: 36415; 80053; 83615; 84550; 85025

== ENCOUNTER → 2025-03-10 13:36 | Outpatient (REF) | payer MEDICARE, SELFPAY | LOC: HWRCS 13:36 | PROVIDERS: ATTENDING PHYSICIAN Internal Medicine Cardiovascular Disease; FAMILY PHYSICIAN Nurse Practitioner Family | DX: J90 Pleural effusion, not elsewhere classified (principal); I25.10 Atherosclerotic heart disease of native coronary artery without angina pectoris; I10 Essential (primary) hypertension | CPT/HCPCS: 93306 ==

== ENCOUNTER → 2025-03-13 06:46 | Outpatient (REF) | payer MEDICARE, SELFPAY ==
[2025-03-13 07:20] VITALS: BP 124/69; BP_SYST 72
[2025-03-13 08:18] LABS: Urine Protein < 5.0 mg/dl
[2025-03-13 08:43] LABS: Blood Urea Nitrogen 21 mg/dl (9-20); Calcium 8.8 mg/dl (8.4-10.2); Carbon Dioxide 33 mmol/L (22-30); Chloride 99 mmol/L (98-107); Glucose 96 mg/dl (70-99); Potassium 3.9 mmol/L (3.5-5.1); Sodium 137 mmol/L (135-145); eGFR > 60.00
[2025-03-13 08:45] VITALS: BP 113/69; BP_SYST 70
[2025-03-13 09:05] VITALS: BP 113/69
== END ==
LOC: RADI 06:46
PROVIDERS: ATTENDING PHYSICIAN Internal Medicine Hematology & Oncology; FAMILY PHYSICIAN Nurse Practitioner Family; REFERRING PHYSICIAN Internal Medicine Cardiovascular Disease
DX: J90 Pleural effusion, not elsewhere classified (principal)
CPT/HCPCS: 88305; 32555; 36415; 71045; 80048; 82570; 84156; 88112

== ENCOUNTER → 2025-03-19 08:23 | Outpatient (REF) | payer MEDICARE, SELFPAY | LOC: WOUND 08:23 | PROVIDERS: ATTENDING PHYSICIAN Surgery; FAMILY PHYSICIAN Nurse Practitioner Family | DX: L89.153 Pressure ulcer of sacral region, stage 3 (principal); I87.2 Venous insufficiency (chronic) (peripheral); I89.0 Lymphedema, not elsewhere classified; I73.9 Peripheral vascular disease, unspecified; I25.10 Atherosclerotic heart disease of native coronary artery without angina pectoris; E66.09 Other obesity due to excess calories; I21.19 ST elevation (STEMI) myocardial infarction involving other coronary artery of inferior wall; I10 Essential (primary) hypertension | CPT/HCPCS: 11042 ==

== ENCOUNTER → 2025-03-20 07:05 | Outpatient (REF) | payer MEDICARE, SELFPAY ==
[2025-03-20 07:20] VITALS: BP 106/65; BP_SYST 68
[2025-03-20 07:53] VITALS: BP 107/65
== END ==
LOC: RADI 07:05
PROVIDERS: ATTENDING PHYSICIAN Internal Medicine Hematology & Oncology; FAMILY PHYSICIAN Nurse Practitioner Family
DX: J90 Pleural effusion, not elsewhere classified (principal)
CPT/HCPCS: 32555; 71045

== ENCOUNTER → 2025-03-26 09:47 | Outpatient (REF) | payer MEDICARE, SELFPAY | LOC: RAD 09:47 | PROVIDERS: ATTENDING PHYSICIAN Nurse Practitioner Family | DX: L03.90 Cellulitis, unspecified (principal); M79.89 Other specified soft tissue disorders; R60.0 Localized edema | CPT/HCPCS: 73620 ==

== ENCOUNTER → 2025-03-27 06:45 | Outpatient (REF) | payer MEDICARE, SELFPAY ==
[2025-03-27 07:15] VITALS: BP 94/56; BP_SYST 71
[2025-03-27 07:40] VITALS: BP 105/57; BP_SYST 67
[2025-03-27 07:54] VITALS: BP 105/57
== END ==
LOC: RADI 06:45
PROVIDERS: ATTENDING PHYSICIAN Internal Medicine Hematology & Oncology; FAMILY PHYSICIAN Nurse Practitioner Family
DX: J90 Pleural effusion, not elsewhere classified (principal)
CPT/HCPCS: 32555; 71045

== ENCOUNTER → 2025-03-30 13:37 | Outpatient (REF) | payer MEDICARE, SELFPAY | LOC: WOUND 13:37 | PROVIDERS: ATTENDING PHYSICIAN Surgery; FAMILY PHYSICIAN Nurse Practitioner Family | DX: I87.313 Chronic venous hypertension (idiopathic) with ulcer of bilateral lower extremity (principal); L97.222 Non-pressure chronic ulcer of left calf with fat layer exposed; L97.322 Non-pressure chronic ulcer of left ankle with fat layer exposed; L97.212 Non-pressure chronic ulcer of right calf with fat layer exposed; I87.2 Venous insufficiency (chronic) (peripheral); I73.9 Peripheral vascular disease, unspecified; I48.0 Paroxysmal atrial fibrillation; E66.01 Morbid (severe) obesity due to excess calories | CPT/HCPCS: 99213 ==

== ENCOUNTER → 2025-04-06 07:16 | Outpatient (REF) | payer MEDICARE, SELFPAY ==
[2025-04-06 07:55] VITALS: BP 110/76; BP_SYST 69
[2025-04-06 08:40] VITALS: BP 101/67; BP_SYST 64
== END ==
LOC: RADI 07:16
PROVIDERS: ATTENDING PHYSICIAN Internal Medicine Hematology & Oncology
DX: J90 Pleural effusion, not elsewhere classified (principal)
CPT/HCPCS: 32555; 71045

== ENCOUNTER → 2025-04-13 06:48 | Outpatient (REF) | payer MEDICARE, SELFPAY ==
[2025-04-13 07:45] VITALS: BP 110/62; BP_SYST 70
[2025-04-13 08:25] VITALS: BP 103/61
== END ==
LOC: RADI 06:48
PROVIDERS: ATTENDING PHYSICIAN Internal Medicine Hematology & Oncology; FAMILY PHYSICIAN Nurse Practitioner Family
DX: J90 Pleural effusion, not elsewhere classified (principal)
CPT/HCPCS: 32555; 71045

== ENCOUNTER → 2025-04-16 12:52 | Outpatient (REF) | payer MEDICARE, SELFPAY | LOC: WOUND 12:52 | PROVIDERS: ATTENDING PHYSICIAN Surgery; FAMILY PHYSICIAN Nurse Practitioner Family | DX: L89.153 Pressure ulcer of sacral region, stage 3 (principal); I87.2 Venous insufficiency (chronic) (peripheral); I89.0 Lymphedema, not elsewhere classified; I73.9 Peripheral vascular disease, unspecified; I25.10 Atherosclerotic heart disease of native coronary artery without angina pectoris; E66.09 Other obesity due to excess calories; I21.19 ST elevation (STEMI) myocardial infarction involving other coronary artery of inferior wall; I10 Essential (primary) hypertension | CPT/HCPCS: 99213 ==

== ENCOUNTER → 2025-04-16 13:20 | Outpatient (REF) | payer MEDICARE, SELFPAY ==
[2025-04-16 14:19] LABS: Blood Urea Nitrogen 20 mg/dl (9-20); Calcium 9.0 mg/dl (8.4-10.2); Carbon Dioxide 37 mmol/L (22-30); Chloride 98 mmol/L (98-107); Glucose 96 mg/dl (70-99); Potassium 3.7 mmol/L (3.5-5.1); Sodium 136 mmol/L (135-145); eGFR > 60.00
== END ==
LOC: REG 13:20
PROVIDERS: ATTENDING PHYSICIAN Physician Assistant Medical; FAMILY PHYSICIAN Nurse Practitioner Family
DX: R60.0 Localized edema (principal)
CPT/HCPCS: 36415; 80048

== ENCOUNTER → 2025-04-21 06:52 | Outpatient (REF) | payer MEDICARE, SELFPAY ==
[2025-04-21 07:20] VITALS: BP 100/61; BP_SYST 71
[2025-04-21 07:46] VITALS: BP 106/68
== END ==
LOC: RADI 06:52
PROVIDERS: ATTENDING PHYSICIAN Internal Medicine Hematology & Oncology; FAMILY PHYSICIAN Nurse Practitioner Family
DX: J90 Pleural effusion, not elsewhere classified (principal)
CPT/HCPCS: 32555; 71045